=== PATIENT | female | born 1950 | race Caucasian/White ===

== ENCOUNTER 2022-08-12 09:44 | Outpatient (OUT) | payer MEDICARE, SELFPAY ==
--- NOTE | 2022-08-12 10:08 | US_ITS ---
The [address] [address] Patient Name: YANIRA BUNN MRN: [facility]:[id number] date: 1950 Sex: F Assigned Patient Location: US Current Patient Location: US Accession/Order Number: [id number] Exam Date: 08/12/2022 10:08 Report Date: 08/13/2022 06:44 At the request of: RODRIGUEZ DOUGLASS Procedure: US thyroid EXAMINATION: US thyroid HISTORY: Papillary microcarcinoma of thyroid C73 ; follow-up of thyroid bed tissue post thyroidectomy COMPARISON: Ultrasound thyroid 03/23/2022 FINDINGS: RIGHT LOBE: Prior thyroidectomy with questionable 7 x 5 x 4 mm area within thyroid bed. Just cephalad to this area is an 18 x 6 x 3 mm similar-appearing isoechoic/hypoechoic tissue. Nearby benign-appearing lymph node, 12 x 7 x 5 mm. Lobe size: Prior thyroidectomy. LEFT LOBE: Prior thyroidectomy with questionable 5 x 4 x 3 mm isoechoic/hypoechoic tissue within thyroid bed. Nearby benign-appearing lymph node, 10 x 6 x 5 mm. Lobe size: Prior thyroidectomy. ISTHMUS: Prior thyroidectomy. IMPRESSION: 1. Prior bilateral thyroidectomy. 2. Small foci of soft tissue within the right and left thyroid beds which may represent residual thyroid tissue or postsurgical changes. In retrospect all 3 areas are suspected to have been present on prior study and appear stable. Consider additional follow-up in 6 months to document continued stability. Electronically authenticated by: KRISTEL AGUAYO Date: 08/13/2022 06:44
[2022-08-18 01:07] LABS: Thyroglobulin (TG-RIA) <2.0 ng/mL (.)
== END 2022-08-12 09:45 ==
PROVIDERS: PCP Internal Medicine; Visit Provider Otolaryngology
DX: C73 Malignant neoplasm of thyroid gland (principal)
CPT/HCPCS: 36415; 76536; 84432

== ENCOUNTER 2022-09-03 10:32 | Outpatient (OUT) | payer MEDICARE, SELFPAY ==
[2022-09-10 21:07] LABS: Thyroglobulin (TG-RIA) <2.0 ng/mL (.)
== END 2022-09-03 10:33 | disposition home or self-care (01) ==
LOC: LAB 10:34
PROVIDERS: PCP Internal Medicine; Visit Provider Otolaryngology
DX: C73 Malignant neoplasm of thyroid gland (principal)
CPT/HCPCS: 36415; 84432; 86800

== ENCOUNTER 2022-09-22 10:15 | Outpatient (OUT) | payer MEDICARE, SELFPAY ==
[2022-09-22 12:22] LABS: Thyroid Stimulating Hormone 2.421 uIU/mL (0.358-3.740)
== END 2022-09-22 10:16 | disposition home or self-care (01) ==
LOC: LAB 10:16
PROVIDERS: PCP Internal Medicine; Visit Provider Otolaryngology
DX: C73 Malignant neoplasm of thyroid gland (principal)
CPT/HCPCS: 36415; 84443

== ENCOUNTER 2023-02-23 08:47 | Outpatient (OUT) | payer MEDICARE, SELFPAY ==
--- NOTE | 2023-02-23 08:50 | US_ITS ---
[address] [address] Patient Name: YANIRA BUNN MRN: [id number] date: 1950 Sex: F Assigned Patient Location: US Current Patient Location: US Accession/Order Number: [id number] Exam Date: 02/23/2023 08:51 Report Date: 02/23/2023 09:37 At the request of: RODRIGUEZ DOUGLASS Procedure: US thyroid EXAM: US thyroid HISTORY: papillary microcarcinoma of thyroid C73 COMPARISON: March and August 2022 thyroid and neck ultrasound TECHNIQUE: Transverse and longitudinal images of the neck FINDINGS: Previous thyroidectomy. 11 x 4 x 8 mm lobulated hypoechoic tissue in the right thyroid bed 15 x 7 x 14 mm lobulated hypoechoic tissue in the left thyroid bed This likely reflects residual thyroid tissue. Adjacent benign-appearing lymph nodes measuring approximately 10 x 5 and 15 x 6 mm. These have reniform shape and central fatty stewart US/US thyroid IMPRESSION: Stable sonographic appearance post thyroidectomy from March 2022 Probable residual tissue in the thyroid fossa. Adjacent benign-appearing lymph nodes Electronically authenticated by: LION EVANS Date: 02/23/2023 09:37
== END 2023-02-23 08:48 | disposition home or self-care (01) ==
LOC: US 08:47
PROVIDERS: PCP Internal Medicine; Visit Provider Otolaryngology
DX: C73 Malignant neoplasm of thyroid gland (principal)
CPT/HCPCS: 76536

== ENCOUNTER 2023-09-15 09:01 | Outpatient (OUT) | payer MEDICARE, SELFPAY ==
--- NOTE | 2023-09-15 09:04 | US_ITS ---
[address] [address] Patient Name: YANIRA BUNN MRN: [id number] date: 1950 Sex: F Assigned Patient Location: US Current Patient Location: US Accession/Order Number: [id number] Exam Date: 09/15/2023 09:45 Report Date: 09/15/2023 10:39 At the request of: RODRIGUEZ DOUGLASS Procedure: US thyroid EXAMINATION: US thyroid HISTORY: Papillary Microcarcinoma Of Thyroid C73 COMPARISON: 02/23/2023 TECHNIQUE: Sonographic images of the thyroid gland were obtained. FINDINGS: Remote total thyroidectomy Area of soft tissue in the right thyroid fossa measuring 5.3 x 4.7 x 11.3 mm. Area of soft tissue in the left thyroid fossa measuring 16.5 x 11.0 x 3.8 mm US/US thyroid IMPRESSION: Stable residual/recurrent thyroid tissue or postsurgical changes in the thyroid bed No new mass or lymphadenopathy Electronically authenticated by: LEILA HARMAN Date: 09/15/2023 10:39
[2023-09-15 11:42] LABS: Thyroid Stimulating Hormone 5.265 uIU/mL (0.358-3.740)
== END 2023-09-15 09:02 | disposition home or self-care (01) ==
LOC: US 09:01
PROVIDERS: PCP Internal Medicine; Visit Provider Otolaryngology
DX: C73 Malignant neoplasm of thyroid gland (principal)
CPT/HCPCS: 36415; 76536; 84432; 84443

== ENCOUNTER 2024-02-14 08:57 | Outpatient (OUT) | payer MEDICARE, SELFPAY ==
--- NOTE | 2024-02-14 09:02 | FL_ITS ---
The [address] [address] Patient Name: YANIRA BUNN MRN: [id number] date: 1950 Sex: F Assigned Patient Location: NM Current Patient Location: NM Accession/Order Number: [id number] Exam Date: 02/14/2024 09:25 Report Date: 02/14/2024 10:43 At the request of: RODRIGUEZ DOUGLASS Procedure: FL modified barium swallow EXAMINATION: FL modified barium swallow HISTORY: Pharyngoesophageal Dysphagia COMPARISON: No relevant comparison available. TECHNIQUE: A swallowing evaluation was performed with fluoroscopy in the usual manner. Standard level fluoroscopic mode of operation utilized. FINDINGS: ORAL PHASE: Normal deglutition. PHARYNGEAL PHASE: Normal swallowing. ASPIRATION: None. STRUCTURE: Normal. No visible obstruction, stricture, or dilatation. OTHER: Negative. FL/FL modified barium swallow IMPRESSION: 1. No aspiration or penetration during swallowing of thin liquid and solids. 2. Please see speech pathologist's report for further discussion and recommendations. Electronically authenticated by: KRISTEL AGUAYO Date: 02/14/2024 10:43
== END 2024-02-14 08:58 | disposition home or self-care (01) ==
LOC: FL 08:57
PROVIDERS: PCP Internal Medicine; Visit Provider Otolaryngology
DX: R13.14 Dysphagia, pharyngoesophageal phase (principal)
CPT/HCPCS: 74230

== ENCOUNTER 2024-03-14 09:45 | Outpatient (OUT) | payer MEDICARE, SELFPAY ==
--- NOTE | 2024-03-14 09:47 | US_ITS ---
The [place] [id number] Patient Name: YANIRA BUNN MRN: [id number] date: 1950 Sex: F Assigned Patient Location: US Current Patient Location: US Accession/Order Number: [id number] Exam Date: 03/14/2024 09:50 Report Date: 03/14/2024 11:40 At the request of: RODRIGUEZ DOUGLASS Procedure: US thyroid EXAMINATION: US thyroid HISTORY: thyroid nodule E04.1 COMPARISON: 09/15/2023 TECHNIQUE: Sonographic images of the thyroid gland were obtained. FINDINGS: Again demonstrated is soft tissue in the right thyroid bed measuring 0.6 x 0.5 x 1.4 cm in the left thyroid bed measuring 0.8 x 1.0 x 1.6 cm. These areas are stable. No new focal mass or lymphadenopathy. US/US thyroid IMPRESSION: Stable residual/recurrent thyroid tissue Electronically authenticated by: LEILA HARMAN Date: 03/14/2024 11:40
== END 2024-03-14 09:46 | disposition home or self-care (01) ==
LOC: US 09:45
PROVIDERS: Visit Provider Otolaryngology
DX: E04.1 Nontoxic single thyroid nodule (principal)
CPT/HCPCS: 76536

== ENCOUNTER 2024-07-05 13:09 | Outpatient (OUT) | payer MEDICARE, SELFPAY ==
--- NOTE | 2024-07-05 13:25 | MR_ITS ---
The [place] [id number] Patient Name: YANIRA BUNN MRN: [id number] date: 1950 Sex: F Assigned Patient Location: LAB Current Patient Location: LAB Accession/Order Number: [id number] Exam Date: 07/05/2024 17:12 Report Date: 07/05/2024 17:15 At the request of: JOSEPH ROE NP Procedure: MR head/brain wo/w con MRI of the brain with and without IV contrast. Reason for exam: Cognitive impairment. History meningioma. COMPARISON: None. TECHNIQUE: Multisequence, multiplanar imaging of the brain was performed before and after the use of IV contrast. FINDINGS: No evidence of restriction diffusion is an diffusion-weighted imaging. No evidence of blood products are seen on T2 Star imaging. Cortical atrophy with mild chronic microvascular ischemic changes are noted. Posterior fossa appears unremarkable. Intraorbital contents appear unremarkable. No significant paranasal sinus disease. Postcontrast imaging demonstrates no abnormal enhancement. MR/MR head/brain wo/w con IMPRESSION: No acute process. Cortical atrophy with mild chronic microvascular ischemic changes. No abnormal enhancement. Impression dictated by: Rikki Garcia Jr., D.O. 07/05/2024 5:15 PM Dictation Location: import2[facility]ENTER[facility]red[facility] Electronically authenticated by: [id number] Y Date: 07/05/2024 17:15
[2024-07-05 13:50] LABS: Estimated GFR (African America >60 (>=60 mL/min/1.73m^2); Estimated GFR (Non-African Ame 57 (>=60 mL/min/1.73m^2)
== END 2024-07-05 13:10 | disposition home or self-care (01) ==
LOC: LAB 13:09
PROVIDERS: Pathology Anatomic Pathology & Clinical Pathology; Visit Provider Nurse Practitioner Family
DX: R41.89 Other symptoms and signs involving cognitive functions and awareness (principal); R48.0 Dyslexia and alexia; R47.01 Aphasia; D32.9 Benign neoplasm of meninges, unspecified
CPT/HCPCS: 36415; 70553; 82565; A9575

== ENCOUNTER 2024-09-19 09:48 | Outpatient (OUT) | payer MEDICARE, SELFPAY ==
--- OUTSIDE RECORDS SUMMARY | 2024-04-09 07:45 | XMS_ITS | Continuity of Care Document ---
Author Organization [facility] Address [address] [place] [address] Phone Care Team Providers Care Correction Officer Name Role Phone Jhon Vergara MD Unavailable Unavailable Procedures Procedure Date DIAGNOSTIC COLONOSCOPY UPPER GI ENDOSCOPY, BIOPSY Colon ca scrn not hi rsk ind OFFICE/OUTPATIENT VISIT, EST OFFICE/OUTPATIENT VISIT, EST OFFICE/OUTPATIENT VISIT, EST OFFICE/OUTPATIENT VISIT, EST OFFICE/OUTPATIENT VISIT, EST OFFICE/OUTPATIENT VISIT, EST OFFICE/OUTPATIENT VISIT, EST OFFICE/OUTPATIENT VISIT, EST OFFICE/OUTPATIENT VISIT, EST OFFICE/OUTPATIENT VISIT, EST POSTOP FOLLOW-UP VISIT POSTOP FOLLOW-UP VISIT Sleeve Gastrectomy LAP PARAESOPHAG MANDY REPAIR ASSIST LAP SLEEVE GASTRECTOMY LAP PARAESOPHAG MANDY REPAIR OFFICE/OUTPATIENT VISIT, EST OFFICE/OUTPATIENT VISIT, NEW Advance Directives Directive Yes / No Effective Date File Name No Information Encounters Encounter Description Practice Location Reason(s) For Visit Diagnoses Date Provider Providers Copied on Encounter [facility], [address] [place] [address] [address], [place], [place], [id number], [place] tel:[phone] [facility] OP No Information Ursula Ferreira. [address] [facility] [address], [place], [place], [id number], [place]. tel:[phone] Referring Provider: Jhon Jaimes, [address], [place], [address] . tel:[phone] OFFICE/OUTPAT IENT VISIT, [facility], [address] [place] [address] [address], [place], [place], [id number], [place] tel:[phone] [facility] No Information Ursula Ferreira. [address] [place] [address] [address], [place], [place], [id number], [place]. tel:[phone] Referring Provider: Jhon Jaimes, [address] [place] [address] [address], [place], [address] . tel:[phone] OFFICE/OUTPAT IENT VISIT, [facility], [address] [place] [address] B, [place], [place], [id number], [place] tel:[phone] [facility] No Information Cesar Gambino. [address] [place] [address] [address], [place], [place], [address], [place]. tel:[phone] Referring Provider: Maki Guerrero, [address] [place] [address] [address] [facility], [place], [address] . tel:[phone] OFFICE/OUTPAT IENT VISIT, [facility], [address] [place] [address] [address], [place], [place], [id number], [place] tel:[phone] [facility] No Information Cesar Gambino. [address] [place] [address] [address], [place], [place], [id number], [place]. tel:[phone] Referring Provider: Maki Guerrero, [address] [place] [address] [address], [place], [address] . tel:[phone] OFFICE/OUTPAT IENT VISIT, [facility], [address] [place] [address] [address], [place], [place], [id number], [place] tel:[phone] [facility] No Information Cesar Gambino. [address] [place] [address] [address], [place], [place], [address], [place]. tel:[phone] Referring Provider: Maki Guerrero, [address] [place] [address] [address], [place], [address] . tel:[phone] OFFICE/OUTPAT IENT VISIT, [facility], [address] [place] [address] [address], [facility] [place], [id number], [place] tel:[phone] [facility] No Information Cesar Gambino. [address] [facility] [address], [facility] [place], [id number], [place]. tel:[phone] Referring Provider: Maki Guerrero, [address] [place] [address] [address], [place], [address] . tel:[phone] OFFICE/OUTPAT IENT VISIT, [facility], [address] [place] [address] [address], [place], [place], [id number], [place] tel:[phone] [facility] No Information Cesar Gambino. [address] [place] [address] [address], [place], [place], [address], [place]. tel:[phone] Referring Provider: Maki Guerrero, [address] [place] [address] [address], [place], [address] . tel:[phone] OFFICE/OUTPAT IENT VISIT, [facility], [address] [place] [address] [address], [place], [address], [place] tel:[phone] [facility] No Information No Information OFFICE/OUTPAT IENT VISIT, [facility], [address] [place] [address] [address], [place], [address], [place] tel:[phone] [facility] No Information No Information OFFICE/OUTPAT IENT VISIT, [facility], [address] [place] [address] [address], [place], [address], [place] tel:[phone] [facility] No Information No Information OFFICE/OUTPAT IENT VISIT, [facility], [address], [place], [place], [address], [place] tel:[phone] [facility] No Information No Information [facility], [address], [place], [id number], [place] tel:[phone] [facility] No Information No Information [facility], [address] [place] [address] Road [address], [place], [place], [address], [place] tel:[phone] [facility] No Information No Information Referring Provider: Jhon Jaimes, [facility] [address] [facility] [address], [place], [address] . tel:[phone] [facility], [address] [place] [address] [address], [place], [place], [address], [place] tel:[phone] [facility] IP No Information No Information [facility], [address] [place] [address] Road [address], [place], [place], [address], [place] tel:[phone] [facility] IP No Information Ursula Ferreira. [facility] [address] [facility] [address], [place], [place], [address], [place]. tel:[phone] Referring Provider: Jhon Jaimes, [address], [place], [address] . tel:[phone] OFFICE/OUTPAT IENT VISIT, [facility], [address], [place], [address], [place] tel:[phone] [facility] No Information Ursula Ferreira. [address] [facility] [address], [place], [place], [address], [place]. tel:[phone] Referring Provider: Jhon Jaimes, [address], [place], [address] . tel:[phone] OFFICE/OUTPAT IENT VISIT, [address], [address], [place], [place], [address], [place] tel:[phone] [facility] No Information Ursula Ferreira. [address] [place] [address] [address], [place], [place], [address], [place]. tel:[phone] Referring Provider: Jhon Jaimes, [address] [place] [address] [address], [place], [address] . tel:[phone] Family History Family Member Type Diagnosis Age At Onset No Information Payers Payer name Insurance type Covered libertarian ID Authoriza efrain(s) [employer] [id number] Social History Type Description Quantity Date Captured Comments Sex Female Smoking Status No Information Chief Complaint And Reason For Visit No Information Reason For Referral Reason For Referral No Information Plan Of Treatment Date Type Action Status Appointment Miracle Wilson BOOKED History Of Present Illness Encounter Date Complaint History Of Prese nt Illness No Information Functional Status Date Functional Assessmen t No Information Instructions Date Instruction Additional Infor mation No Information Assessments Type Assessment Date No Information Patient Care Teams Name Effective Dates (start - stop) Status Members No Information
--- NOTE | 2024-09-19 09:50 | US_ITS ---
The [address] [address] Patient Name: YANIRA BUNN MRN: [id number] date: 1950 Sex: F Assigned Patient Location: US Current Patient Location: US Accession/Order Number: [id number] Exam Date: 09/19/2024 10:40 Report Date: 09/19/2024 10:47 At the request of: RODRIGUEZ DOUGLASS MD Procedure: US thyroid THYROID ULTRASOUND COMPARISON: 03/14/2024 CLINICAL DATA: Follow-up after thyroidectomy. Real-time ultrasound evaluation of the lower neck was performed. Hypoechoic tissue is seen within the thyroid fossa on both sides. On the right, this measures 16 x 5 x 5 mm. On the left it measures approximately 15 x 4 x 7 mm. This was also present on the prior. No associated nodularity is seen. US/US thyroid IMPRESSION: SIMILAR HYPOECHOIC DENSITY WITHIN THE THYROID BED ON BOTH SIDES, POSSIBLY RESIDUAL THYROID TISSUE. NO NEW ABNORMALITIES. Impression dictated by: Jacqueline Mccollum M.D. 09/19/2024 10:47 AM Dictation Location: [place] [address] Electronically authenticated by: [id number] Y Date: 09/19/2024 10:47
--- OUTSIDE RECORDS SUMMARY | 2024-09-19 09:50 | XMS_ITS | Encounter Summary ---
Author Organization [facility] Address [address] [place] [address] Care Team Providers Care Luster Applicator Name Role Phone Ricci Julian MD Unavailable [phone] Ricci Julian MD Primary Care Provider [phone] [place] Vallejo NP Unavailable Unavailable Encounter Details Date Type Department Care Team ([facility] Contact Info) Description 11/02/2023 Abstract [facility] [address] [facility] [address] [place] [address] Ricci Julian MD [address] [facility] [address] [place], [place] [id number] Social History Tobacco Use Types Packs/Day Years Used Date Smoking Tobacco: Former Cigarettes 2 36.9 0 05/29/1962 - 04/07/1999 Smokeless Tobacco: Never Comments:Stopped smoking > 1 0 years ago. Alcohol Use Standard Drinks/Week Comments Yes 0 (1 standard drink = 0.6 oz pure alcohol) caffeine intake: 4 or more cups per day. B1300 Health Literacy Answer Date Recor ded How often do you need to hav e someone help you when you read instructions, pamphlets, or other written material from your doctor or pharmacy? Never 10/28/2023 Humiliation, Afraid, Rape, and Kick questionnair e Answer Date Recorded Within the last year, have y ou been afraid of your partner or ex-partner? No 10/18/2022 Within the last year, have y ou been humiliated or emotionally abused in other ways by your partner or ex-partner? No Within the last year, have y ou been kicked, hit, slapped, or otherwise physically hurt by your partner or ex-partner? No 10/18/2022 Within the last year, have y ou been raped or forced to have any kind of sexual activity by your partner or ex-partner? No 10/18/2022 Social Connection and Isolat ion Panel [NHANES] Answer Date Recorded In a typical week, how many times do you talk on the phone with family, friends, or neighbors? More than three times a week 10/28/2023 How often do you get togethe r with friends or relatives? Twice a week 10/28/2023 How often do you attend chur ch or judaism services? Patient declined 10/28/2023 Do you belong to any clubs o r organizations such as orthodoxy groups, unions, fraEngine Yard or athletic groups, or school groups? Patient declined 10/28/2023 How often do you attend meet ings of the clubs or organizations you belong to? Patient declined 10/28/2023 Are you , , di vorced, , never , or living with a partner? 10/28/2023 AUDIT-C Answer Date Recorded Q1: How often do you have a drink containing alc ohol? Monthly or less 10/28/2023 Q2: How many drinks containi ng alcohol do you have on a typical day when you are drinking? 1 or 2 10/28/2023 Q3: How often do you have si x or more drinks on one occasion? Never 10/28/2023 Overall Financial Resource Strain (CARDIA) Answe r Date Recorded How hard is it for you to pa y for the very basics like food, housing, medical care, and heating? Patient declined 10/28/2023 PHQ-2 Answer Date Recorded Patient Health Questionnaire-2 Score 0 10/28/2023 [facility] - Occupational Stress Questionnaire Answer Date Recorded Do you feel stress - tense, restless, nervous, or anxious, or unable to sleep at night because your mind is troubled all the time - these days? Only a little 10/28/2023 Exercise Vital Sign Answer Date Recorde d On average, how many days pe r week do you engage in moderate to strenuous exercise (like a brisk walk)? 5 days 10/28/2023 On average, how many minutes do you engage in exercise at this level? 10 min 10/28/2023 Hunger Vital Sign Answer Date Recorded Within the past 12 months, y ou worried that your food would run out before you got the money to buy more. Patient declined Within the past 12 months, t he food you bought just didn't last and you didn't have money to get more. Patient declined PRAPARE - Transportation Answer Date Re corded In the past 12 months, has l ack of transportation kept you from medical appointments or from getting medications? Patient declined 10/28/2023 In the past 12 months, has l ack of transportation kept you from meetings, work, or from getting things needed for daily living? Patient declined 10/28/2023 Housing Stability Vital Sign Answer Aris e Recorded In the last 12 months, was t here a time when you were not able to pay the mortgage or rent on time? No 10/18/2022 Number of Places Lived in the Last Year Not on f ile 10/18/2022 In the last 12 months, was t here a time when you did not have a steady place to sleep or slept in a [place] (including now)? No 10/18/2022 Housing Stability Vital Sign Answer Aris e Recorded In the last 12 months, was t here a time when you were not able to pay the mortgage or rent on time? No 10/28/2023 Number of Times Moved in the Last Year Not on fi le 10/28/2023 At any time in the past 12 m [facility], were you homeless or living in a [place] facility (including now)? No 10/28/2023 Comments Unknown Sex and Gender Information Value Date Recorded Sex Assigned at Not on file Legal Sex Female 6:50 PM EDT Gender Identity Not on file Sexual Orientation Not on file documented as of this encounter Plan of Treatment Upcoming Encounters Date Type Department Care Team (Late st Contact Info) Description 09/26/2024 10:20 AM EDT Office Visit [facility] [address] [facility] [address] [place] [address] Megan Pretty MD [address] [facility] [address] [place] [address] 10/15/2024 10:00 AM EDT Social Work [facility] [address] [facility] [address] Kerry Bradshaw [facility] [address] [place] [facility] [place] [address] 12/03/2024 9:15 AM EDT Office Visit [facility] [address] [place] [address] Ricci Julian MD [address] [place] [address] 01/01/2025 2:40 PM EDT Office Visit [facility] [address] [place] [address] Cheri Rojas, [employer] [address] [place] [address] 07/02/2025 2:35 PM EDT Office Visit [facility] [address] [place] [address] Cheri Rojas, [employer] [address] [place] [address] documented as of this encounter Goals Goal Patient Goal Type Associated Problems Recent Progress Patient-Stated? Author Help patient manage antidepressant medication Care Plan Patient on antidepressant monitoring plan Jessi Ochoa NP documented as of this encounter Visit Diagnoses Not on filedocumented in this encounter Additional Health Concerns Active Problems Noted Date Diagnosed Date Patient on antidepressant monitoring plan 2023 Assessment Noted Time PHQ-9 Depression Total Score: 0 10/28/19 24 9:19 AM EDT documented as of this encounter Care Teams Luster Applicator Relationship Specialty Start Date End Date Ricci Julian MD [address] [place] [address] PCP - [employer] 03/07/17 Ricci Julian MD [address] [facility] [address] [place] [address] PCP - General Internal Medicine 08/30/22 Florida Vallejo NP [address] [facility] [address] [place] [address] Nurse Practitioner Neurology 06/28/24 documented as of this encounter
--- OUTSIDE RECORDS SUMMARY | 2024-09-19 09:50 | XMS_ITS | Encounter Summary ---
Author Organization [facility] Address [address] [place] [address] Care Team Providers Care Guitar Player Name Role Phone Ricci Julian MD Unavailable [phone] Ricci Julian MD Primary Care Provider [phone] [place] Vallejo NP Unavailable Unavailable Encounter Details Date Type Department Care Team (Late st Contact Info) Description 02/14/2024 Clinisync Result Encounter [facility] External Department Unsolicited Provider, Generic External Data Social History Tobacco Use Types Packs/Day Years [...] 10/28/2023 How often do you attend chur or voodoo services? Patient declined 10/28/2023 Do you belong to any clubs o r organizations such as protestant groups, unions, fraternal or athletic groups, or school groups? Patient [...] Recorded Patient Health Questionnaire-2 Score 0 10/28/2023 [facility] - Occupational Stress Questionnaire Answer Date Recorded [...] place to sleep or slept in a penitentiary (including now)? No 10/18/2022 Housing Stability Vital Sign Answer Aris e Recorded In the last 12 months, was t here a time when you were not able to pay the mortgage or rent on time? No 10/28/2023 Number of Times Moved in the Last Year Not on fi le 10/28/2023 At any time in the past 12 m [facility], were you homeless or living in a penitentiary (including now)? No 10/28/2023 Comments Unknown Sex and Gender Information Value Date Recorded Sex Assigned at Not on file Legal Sex Female 6:50 PM EDT Gender Identity Not on file Sexual Orientation Not on file documented as of this encounter Plan of Treatment Upcoming Encounters Date Type Department Care Team (Late st Contact Info) Description 09/26/2024 10:20 AM EDT Office Visit [facility] 112 [facility] [address] [place] [address] Megan Pretty MD 112 [facility] [address] [place] [address] 10/15/2024 10:00 AM EDT Social Work [facility] [address] [place] [address] Kerry Bradshaw, BAILEE-S [address] [place] [address] 12/03/2024 9:15 AM EDT Office Visit [facility] [address] [place] [address] Ricci Julian MD [address] [place] [address] 01/01/2025 2:40 PM EDT Office Visit [facility] D[facility] [address] [place] [address] Cheri Rojas, WORKFORCE DEVELOPMENT VICE PRESIDENT-SET UP MECHANIC COATING MACHINES [address] [place] [address] 07/02/2025 2:35 PM EDT Office Visit [facility] [address] [place] [address] Cheri Rojas, WORKFORCE DEVELOPMENT VICE PRESIDENT-SET UP MECHANIC COATING MACHINES [address] [place] [address] documented as of this encounter Goals Goal Patient Goal Type Associated Problems Recent Progress Patient-Stated? Author Help patient manage antidepressant medication Care Plan Patient on antidepressant monitoring plan Jessi Ochoa, MACHINE MAINTENANCE MECHANIC documented as of this encounter Procedures Procedure Name Priority Date/Time Associated Diagnosis Comments FL MODIFIED BARIUM SWALLOW 02/14/2024 10:43 AM EST documented in this encounter Results * FL MODIFIED BARIUM SWALLOW (02/14/2024 10:43 AM EST) Anatomical Region Laterality Modality Radiographic Adalgisa ging 02/14/2024 10:4 3 AM EST Narrative 02/14/2024 10:46 AM EST The [address] [address] Fluoroscopy Report Signed Patient: YANIRA BUNN MR#: [id number] : 1950 Acct:[id number] Age/Sex: 74 / F ADM Date: 02/14/24 Loc: [place] Attending Dr: Megan Pretty M.D. Ordering Physician: Megan Pretty M.D. Date of Service: 02/14/24 Procedure(s): FL modified barium swallow Accession Number(s): [id number] cc: RICCI JULIAN ; Megan Pretty M.D. The [place] [address] Patient Name: YANIRA BUNN MRN: [facility]:[id number] date: 1950 Sex: F Assigned Patient Location: CT Current Patient Location: CT Accession/Order Number: [id number] Exam Date: 02/14/2024 09:25 Report Date: 02/14/2024 10:43 At the request of: MEGAN PRETTY Procedure: FL modified barium swallow EXAMINATION: FL modified barium swallow HISTORY: Pharyngoesophageal Dysphagia COMPARISON: No relevant comparison available. TECHNIQUE: A swallowing evaluation was performed with fluoroscopy in the usual manner. Standard level fluoroscopic mode of operation utilized. FINDINGS: ORAL PHASE: Normal deglutition. PHARYNGEAL PHASE: Normal swallowing. ASPIRATION: None. STRUCTURE: Normal. No visible obstruction, stricture, or dilatation. OTHER: Negative. FL/FL modified barium swallow IMPRESSION: 1. No aspiration or penetration during swallowing of thin liquid and solids. 2. Please see speech pathologist's report for further discussion and recommendations. Electronically authenticated by: HERMILO KLEIN Date: 02/14/2024 10:43 Dictated By: Hermilo Klein M.D. Signed By: 02/14/24 1046 DD/ 1043 TD/TT: Pump Servicer Supervisor: Procedure Note Radiology, Radiologist, MD - 02/14/2024 [place] [address] Fluoroscopy Report Signed Patient: YANIRA BUNN EMR#: [id number] : 1950cct:[id number] Age/Sex: 74 / FADM Date: 02/14/24 Loc: [place] Attending Dr: Megan Pretty M.D. Ordering Physician: Megan Pretty M.D. Date of Service: 02/14/24 Procedure(s): FL modified barium swallow Accession Number(s): [id number] cc: RICCI JULIAN ; Megan Pretty M.D. [address] [address] Patient Name: YANIRA BUNN MRN: [id number] date: 1950 Sex: F Assigned Patient Location: CT Current Patient Location: CT Accession/Order Number: [id number] Exam Date: 02/14/2024 09:25 Report Date: 02/14/2024 10:43 At the request of: MEGAN PRETTY Procedure: FL modified barium swallow EXAMINATION: FL modified barium swallow HISTORY: Pharyngoesophageal Dysphagia COMPARISON: No relevant comparison available. TECHNIQUE: A swallowing evaluation was performed with fluoroscopy in theusual manner. Standard level fluoroscopic mode of operation utilized. FINDINGS: ORAL PHASE: Normal deglutition. PHARYNGEAL PHASE: Normal swallowing. ASPIRATION: None. STRUCTURE: Normal. No visible obstruction, stricture, or dilatation. OTHER: Negative. FL/FL modified barium swallow IMPRESSION: 1. No aspiration or penetration during swallowing of thin liquid andsolids. 2. Please see speech pathologist's report for further discussion and recommendations. Electronically authenticated by: HERMILO KLEIN Date: 02/14/2024 10:43 Dictated By: Hermilo Klein M.D. Signed By:02/14/24 1046 DD/ 1043 TD/TT: Pump Servicer Supervisor: Generic External Data Provider IMG XR PROCEDURES Final Result documented in this encounter Visit Diagnoses Not on filedocumented in this encounter Additional Health Concerns Active Problems Noted Date Diagnosed Date Patient on antidepressant monitoring plan 2023 Assessment Noted Time PHQ-9 Depression Total Score: 0 10/28/19 24 9:19 AM EDT documented as of this encounter Care Teams Guitar Player Relationship Specialty Start Date End Date Ricci Julian MD [address] [place] [address] PCP - [employer] 03/07/17 Ricci Julian MD [address] [facility] [address] [place] [address] PCP - General Internal Medicine 08/30/22 Florida Vallejo NP [address] [facility] [address] [place] [address] Nurse Practitioner Neurology 06/28/24 documented as of this encounter
--- OUTSIDE RECORDS SUMMARY | 2024-09-19 09:50 | XMS_ITS | Encounter Summary ---
Author Organization [facility] Address [address] [facility] [place] [address] Care Team Providers Care Clinical Rn Manager Name Role Phone Ricci Julian MD Unavailable [phone] Ricci Julian MD Primary Care Provider [phone] Florida Vallejo NP Unavailable Unavailable Encounter Details Date Type Department Care Team ([facility] Contact Info) Description 08/03/2022 Abstract [facility] [address] [place] [address] Megan Pretty MD 112 [facility] [address] [place], [place] [address] Social History Tobacco Use Types Packs/Day Years Used Date Smoking Tobacco: Former Cigarettes Q uit: 1999 Tobacco Cessation:Counseling Given: Not Answered Comments:Stopped smoking > 10 years ago. Alcohol Use Standard Drinks/Week Comments Yes 0 (1 standard drink = 0.6 oz pure alcohol) 2-4 times a month. caffeine intake: 4 or more cups per day. Comments Unknown Sex and Gender Information Value Date Recorded Sex Assigned at Not on file Legal Sex Female 6:50 PM EDT Gender Identity Not on file Sexual Orientation Not on file documented as of this encounter Plan of Treatment Upcoming Encounters Date Type Department Care Team ([facility] Contact Info) Description 09/26/2024 10:20 AM EDT Office Visit [facility] JAMARI CARVAJAL [address] [place] [address] Megan Pretty MD 112 [facility] [address] [place], [place] [address] 10/15/2024 10:00 AM EDT Social Work [facility] [address] [facility] [place] [address] Kerry Bradshaw LISW-S [address] [place] [address] 12/03/2024 9:15 AM EDT Office Visit [facility] [address] [place] [address] Ricci Julian MD [address] [place] [address] 01/01/2025 2:40 PM EDT Office Visit [facility] [address] [place] [address] Cheri Rojas, LINE FIXER-ROUSTABOUT CREW [address] [place] [address] 07/02/2025 2:35 PM EDT Office Visit [facility] [address] [place] [address] Cheri Rojas, LINE FIXER-ROUSTABOUT CREW [address] [place] [address] documented as of this encounter Visit Diagnoses Not on filedocumented in this encounter Care Teams Clinical Rn Manager Relationship Specialty Start Date End Date Ricci Julian MD [address] [place] [address] PCP - [employer] 03/07/17 Ricci Julian MD [address] [place] [address] PCP - General Internal Medicine 08/30/22 Florida Vallejo NP [address] [place] [address] Nurse Practitioner Neurology 06/28/24 documented as of this encounter
--- OUTSIDE RECORDS SUMMARY | 2024-09-19 09:50 | XMS_ITS | Encounter Summary ---
Author Organization [facility] Address [address] [place] [address] Care Team Providers Care Chief Analytics Officer Name Role Phone Ricci Julian MD Unavailable [phone] Ricci Julian MD Primary Care Provider [phone] Florida Vallejo NP Unavailable Unavailable Encounter Details Date Type Department Care Team ([facility] Contact Info) Description 12/23/2023 Orders Only [facility] E[facility] 112 [facility] [address] [place] [address] Jessi Becerra 112 [facility] [address] [place], [place] [address] Thyroid nodule ; Postoperative hypothyroidism Social History Tobacco Use Types Packs/Day Years [...] often do you attend chur ch or jehovah's witness services? Patient declined 10/28/2023 Do you belong to any clubs o r organizations such as orthodox groups, unions, fraReelation or athletic groups, or school groups? Patient [...] Recorded Patient Health Questionnaire-2 Score 0 10/28/2023 [facility] Occupat ional [facility] - Occupational Stress [...] place to sleep or slept in a long term (including now)? No 10/18/2022 Housing Stability Vital Sign Answer Aris e Recorded In the last 12 months, was t here a time when you were not able to pay the mortgage or rent on time? No 10/28/2023 Number of Times Moved in the Last Year Not on fi le 10/28/2023 At any time in the past 12 m [facility], were you homeless or living in a long term (including now)? No 10/28/2023 Comments Unknown Sex [...] EDT Office Visit [facility] 112 [facility] [address] [place] [address] Megan Pretty MD 112 [facility] [address] [place] [address] 10/15/2024 10:00 AM EDT Social Work [facility] [address] [place] [facility] [place] [address] Kerry Bradshaw LISW-S [address] [facility] [place] [address] 12/03/2024 9:15 AM EDT Office Visit [facility] [address] [place] [address] Ricci Julian MD [address] [place] [address] 01/01/2025 2:40 PM EDT Office Visit [facility] [address] [place] [address] Cheri Rojas, FELLING MACHINE OPERATOR-AUTOMOTIVE FUEL SYSTEMS CONVERTER [address] [place] [address] 07/02/2025 2:35 PM EDT Office Visit [facility] [address] [place] [address] Cheri Rojas, FELLING MACHINE OPERATOR-AUTOMOTIVE FUEL SYSTEMS CONVERTER [address] [place] [address] documented as of this encounter Goals Goal Patient Goal Type Associated Problems Recent Progress Patient-Stated? Author Help patient manage antidepressant medication Care Plan Patient on antidepressant monitoring plan Jessi Ochoa NP documented as of this encounter Visit Diagnoses Diagnosis Thyroid nodule Nontoxic uninodular goiter Postoperative hypothyroidism Postsurgical hypothyroidism documented in this encounter Additional Health Concerns Active Problems Noted Date Diagnosed Date Patient on antidepressant monitoring plan 2023 Assessment Noted Time PHQ-9 Depression Total Score: 0 10/28/19 24 9:19 AM EDT documented as of this encounter Care Teams Chief Analytics Officer Relationship Specialty Start Date End Date Ricci Julian MD [address] [place] [address] PCP - Humana 03/07/17 Ricci Julian MD [address] [facility] [address] [place] [address] PCP - General Internal Medicine 08/30/22 Florida Vallejo NP [address] [facility] [address] [place] [address] Nurse Practitioner Neurology 06/28/24 documented as of this encounter
--- OUTSIDE RECORDS SUMMARY | 2024-09-19 09:51 | XMS_ITS | Encounter Summary ---
Author Organization [facility] Address [address] [place] [address] Care Team Providers Care Director Of Residential Services Name Role Phone Ricci Julian MD Unavailable [phone] Ricci Julian MD Primary Care Provider [phone] Florida Vallejo NP Unavailable Unavailable Reason for Visit * Reason Comments Med Refill Encounter Details Date Type Department Care Team (Late Contact Info) Description 05/05/2024 Refill [facility] [address] [facility] [address] [place] [address] Ricci Julian MD [address] [place] [facility] [address] [place], [place] [id number] Anxiety and depression Social History Tobacco Use Types Packs/Day Years [...] How often do you attend chur or caodaism services? Patient declined 10/28/2023 Do you belong to any clubs o r organizations such as gnosticist groups, unions, fraternal or athletic groups, or [...] Recorded Patient Health Questionnaire-2 Score 0 10/28/2023 [facility] Occupat ional Health - Occupational Stress [...] place to sleep or slept in a jail (including now)? No 10/18/2022 Housing Stability Vital Sign Answer Aris e Recorded In the last 12 months, was t here a time when you were not able to pay the mortgage or rent on time? No 10/28/2023 Number of Times Moved in the Last Year Not on fi le 10/28/2023 At any time in the past 12 m [facility], were you homeless or living in a jail (including now)? No 10/28/2023 Comments Unknown Sex and Gender Information Value Date Recorded Sex Assigned at Not on file Legal Sex Female 6:50 PM EDT Gender Identity Not on file Sexual Orientation Not on file documented as of this encounter Miscellaneous Notes * Telephone Encounter - Ricci Julian MD - 05/07/2024 2:17 PM EST She hasn't been seen in over 2 years. If she intends for me to be her real estate loan officer, she needs tomake an appt within 60 days. Otherwise she will need to find a new MD to prescribe her meds. documented in this encounter Plan of Treatment Upcoming Encounters Date Type Department Care Team (Late st Contact Info) Description 09/26/2024 10:20 AM EDT Office Visit [facility] [address] [place] [address] Megan Pretty MD [address] [place] [address] 10/15/2024 10:00 AM EDT Social Work [facility] BH [address] [place] [address] Kerry Bradshaw LISW-S [address] [place] [facility] [place] [address] 12/03/2024 9:15 AM EDT Office Visit [facility] [address] [place] [address] Ricci Julian MD [address] [place] [address] 01/01/2025 2:40 PM EDT Office Visit [facility] [address] [place] [address] Cheri Rojas, NETWORK SECURITY ARCHITECT-GRAPHITE MILL OPERATOR [address] [place] [address] 07/02/2025 2:35 PM EDT Office Visit [facility] [address] [place] [address] Cheri Rojas, NETWORK SECURITY ARCHITECT-GRAPHITE MILL OPERATOR [address] [place] [address] documented as of this encounter Goals Goal Patient Goal Type Associated Problems Recent Progress Patient-Stated? Author Help patient manage antidepressant medication Care Plan Patient on antidepressant monitoring plan No Bushra, Jessi M, ROUGHER FOR CEMENT documented as of this encounter Visit Diagnoses Diagnosis Anxiety and depression documented in this encounter Additional Health Concerns Active Problems Noted Date Diagnosed Date Patient on antidepressant monitoring plan 2023 Assessment Noted Time PHQ-9 Depression Total Score: 0 10/28/19 24 9:19 AM EDT documented as of this encounter Care Teams Director Of Residential Services Relationship Specialty Start Date End Date Ricci Julian MD [address] [facility] [address] [place] [address] PCP - Humana 03/07/17 Ricci Julian MD [address] [facility] [address] [place] [address] PCP - General Internal Medicine 08/30/22 Florida Vallejo NP [address] [facility] [address] [place] [address] Nurse Practitioner Neurology 06/28/24 documented as of this encounter
--- OUTSIDE RECORDS SUMMARY | 2024-09-19 09:51 | XMS_ITS | Encounter Summary ---
Author Organization [facility] Address [address] [place] [address] Care Team Providers Care Supervisor Chassis Assembly Name Role Phone Ricci Julian MD Unavailable [phone] Ricci Julian MD Primary Care Provider [phone] [place] Vallejo NP Unavailable Unavailable Encounter Details Date Type Department Care Team (Late st Contact Info) Description 08/09/2024 Orders Only JESSICA EDWIN [address] [place] [address] Karen Burgess LPN 112 [facility] [address] [place] [address] Cognitive impairment; Alexia; Aphasia; Meningioma (HCC) Social History Tobacco Use Types Packs/Day Years [...] How often do you attend chur or jewish services? Patient declined 10/28/2023 Do you belong to any clubs o r organizations such as baptism groups, unions, fraternal or athletic groups, or [...] Recorded Patient Health Questionnaire-2 Score 0 10/28/2023 [facility] of Occupat ional Health - Occupational Stress [...] place to sleep or slept in a intermediate (including now)? No 10/18/2022 Housing Stability Vital Sign Answer Aris e Recorded In the last 12 months, was t here a time when you were not able to pay the mortgage or rent on time? No 10/28/2023 Number of Times Moved in the Last Year Not on fi le 10/28/2023 At any time in the past 12 m [facility], were you homeless or living in a intermediate (including now)? No 10/28/2023 Comments Unknown Sex [...] EDT Office Visit [facility] 112 [facility] [address] [place] [address] Megan Pretty MD 112 [facility] [address] [place] [address] 10/15/2024 10:00 AM EDT Social Work [facility] [address] [place] [address] Kerry Bradshaw, DRIVING TEACHER-S [address] [facility] [place] [address] 12/03/2024 9:15 AM EDT Office Visit [facility] [address] [place] [address] Ricci Julian MD [address] [place], [place] [address] 01/01/2025 2:40 PM EDT Office Visit [facility] [address] [place] [address] Cheri Rojas, PATHOLOGY LAB TECHNICIAN-WRAPPING MACHINE HELPER [address] [place] [address] 07/02/2025 2:35 PM EDT Office Visit [facility] [address] [place] [address] Cheri Rojas, PATHOLOGY LAB TECHNICIAN-WRAPPING MACHINE HELPER [address] [place] [address] documented as of this encounter Goals Goal Patient Goal Type Associated Problems Recent Progress Patient-Stated? 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 documented in this encounter Additional Health Concerns Active Problems Noted Date Diagnosed Date Patient on antidepressant monitoring plan 2023 Assessment Noted Time PHQ-9 Depression Total Score: 0 10/28/19 24 9:19 AM EDT documented as of this encounter Care Teams Supervisor Chassis Assembly Relationship Specialty Start Date End Date Ricci Julian MD [address] [place] [address] PCP - Hum[employer] 03/07/17 Ricci Julian MD [address] [facility] [address] [place] [address] PCP - General Internal Medicine 08/30/22 Florida Vallejo NP [address] [facility] [address] [place] [address] Nurse Practitioner Neurology 06/28/24 documented as of this encounter
--- OUTSIDE RECORDS SUMMARY | 2024-09-19 09:51 | XMS_ITS | Encounter Summary ---
Author Organization [facility] Address [address] [place] [address] Care Team Providers Care Kiln Stacker Name Role Phone Ricci Julian MD Unavailable [phone] Ricci Julian MD Primary Care Provider [phone] [place] Vallejo NP Unavailable Unavailable Reason for Visit * Reason Comments Med Refill Encounter Details Date Type Department Care Team ([facility] Contact Info) Description 09/17/2024 Refill [facility] [address] [facility] 130 [place] [address] Megan Pretty MD 112 [facility] 130 [place], [place] [id number] LPRD (laryngopharyngeal reflux disease) Social History Tobacco Use Types Packs/Day Years [...] How often do you attend chur or jain services? Patient declined 10/28/2023 Do you belong to any clubs o r organizations such as mosque groups, unions, fraternal or athletic groups, or [...] Answer Date Recorded Patient Health Questionnaire-2 Score 2 08/23/2024 [facility] [place] of Occupat ional Health - Occupational Stress [...] place to sleep or slept in a prison (including now)? No 10/18/2022 Housing Stability Vital Sign Answer Aris e Recorded In the last 12 months, was t here a time when you were not able to pay the mortgage or rent on time? No 10/28/2023 Number of Times Moved in the Last Year Not on fi le 10/28/2023 At any time in the past [address] [facility], were you homeless or living in a prison (including now)? No 10/28/2023 Comments Unknown Sex [...] EDT Office Visit [facility] 112 [facility] 130 [place] [address] Megan Pretty MD 112 [facility] 130 [place] [address] 10/15/2024 10:00 AM EDT Social Work [facility] [address] [place] [facility] [address] Kerry Bradshaw DeandreAMAURIW-S [address] [facility] [place] [address] 12/03/2024 9:15 AM EDT Office Visit [facility] [address] [facility] [address] [place] [address] iRcci Julian MD [address] [place] [address] 01/01/2025 2:40 PM EDT Office Visit [facility] [address] [place] [address] Cheri Rojas, INDUSTRIAL LABORER-ROLL FORMER [address] [place] [address] 07/02/2025 2:35 PM EDT Office Visit [facility] [address] [place] [address] Cheri Rojas, INDUSTRIAL LABORER-ROLL FORMER [address] [place] [address] documented as of this encounter Goals Goal Patient Goal Type Associated Problems Recent Progress Patient-Stated? Author Help patient manage antidepressant medication Care Plan Patient on antidepressant monitoring plan Jessi Ochoa FRUIT CHECKER documented as of this encounter Visit Diagnoses Diagnosis LPRD (laryngopharyngeal reflux disease) Acute laryngitis, without mention of obstruction documented in this encounter Additional Health Concerns Active Problems Noted Date Diagnosed Date Patient on antidepressant monitoring plan 2023 Assessment Noted Time PHQ-9 Depression Total Score: 0 10/28/19 24 9:19 AM EDT documented as of this encounter Care Teams Kiln Stacker Relationship Specialty Start Date End Date Ricci Julian MD [address] [place] [address] PCP - Hum[employer] 03/07/17 Ricci Julian MD [address] [facility] 110 [place] [address] PCP - General Internal Medicine 08/30/22 Florida Vallejo NP [address] [address] Nurse Practitioner Neurology 06/28/24 documented as of this encounter
--- OUTSIDE RECORDS SUMMARY | 2024-09-19 09:51 | XMS_ITS | Encounter Summary ---
Author Organization [facility] Address [address] [place] [address] Care Team Providers Care Field Marketing Associate Name Role Phone Ricci Julian MD Unavailable [phone] Ricci Julian MD Primary Care Provider [phone] Florida Vallejo NP Unavailable Unavailable Encounter Details Date Type Department Care Team (Late Contact Info) Description 10/27/2022 [facility] 112 [facility] 110 [place] [address] Ricci Julian MD 112 [facility] [address] [place], [place] [id number] Social History Tobacco Use Types Packs/Day Years Used Date Smoking Tobacco: Former Cigarettes Q uit: 1999 Smokeless Tobacco: Never Comments:Stopped smoking > 1 0 years ago. Alcohol Use Standard Drinks/Week Comments Yes 0 (1 standard drink = 0.6 oz pure alcohol) caffeine intake: 4 or more cups per day. Humiliation, Afraid, Rape, and Kick questionnair e [...] or ex-partner? No 10/18/2022 Social Connection and Isolation Panel [NHANES] A nswer Date Recorded In a typical week, how many times do you talk on the phone with family, friends, or neighbors? Twice a week 10/18/2022 How often do you get togethe r with friends or relatives? Once a week 10/18/2022 How often do you attend muslim or church serv ices? Never 10/18/2022 Do you belong to any clubs o r organizations such as muslim groups, unions, fraternal or athletic groups, or school groups? Patient declined 10/18/2022 How often do you attend meet ings of the clubs or organizations you belong to? Never 10/18/2022 Are you , , di vorced, , never , or living with a partner? 10/18/2022 AUDIT-C Answer Date Recorded Q1: How often do you have a drink containing alc ohol? Monthly or less 10/25/2022 Q2: How many drinks containi ng alcohol do you have on a typical day when you are drinking? 1 or 2 10/25/2022 Q3: How often do you have si x or more drinks on one occasion? Never 10/25/2022 Overall Financial Resource Strain (CARDIA) Answe r Date Recorded How hard is it for you to pa y for the very basics like food, housing, medical care, and heating? Patient declined 10/18/2022 PHQ-2 Answer Date Recorded Patient Health Questionnaire-2 Score 0 10/25/2022 [facility] - [facility]ational Stress Questionnaire Answer Date Recorded Do you feel stress - tense, restless, nervous, or anxious, or unable to sleep at night because your mind is troubled all the time - these days? Only a little 10/18/2022 Exercise Vital Sign Answer Date Recorde d On average, how many days pe r week do you engage in moderate to strenuous exercise (like a brisk walk)? 3 days 10/18/2022 On average, how many minutes do you engage in exercise at this level? 30 min 10/18/2022 Hunger Vital Sign Answer Date Recorded Within [...] appointments or from getting medications? Patient declined 10/18/2022 In the past 12 months, has l ack of transportation kept you from meetings, work, or from getting things needed for daily living? Patient declined 10/18/2022 Housing Stability Vital Sign Answer Aris [...] place to sleep or slept in a chcf (including now)? No 10/18/2022 Comments Unknown Sex and Gender Information Value Date Recorded Sex Assigned at Not on file Legal Sex Female 6:50 PM EDT Gender Identity Not on file Sexual Orientation Not on file COVID-19 Exposure Response Date Recorded In the last 10 days, have yo u been in contact with someone who was confirmed or suspected to have Coronavirus/COVID-19? No / Unsure 10/18/2022 9:23 AM EDT documented as of this encounter Plan of Treatment Upcoming Encounters Date Type Department Care Team (Late st Contact Info) Description 09/26/2024 10:20 AM EDT Office Visit [facility] [address] [facility] 130 [place] [address] Megan Pretty MD [address] [place] [address] 10/15/2024 10:00 AM EDT Social Work [facility] [address] [place] [address] Kerry Bradshaw, COMPUTER FORENSICS EXAMINER-S [address] [place] [address] 12/03/2024 9:15 AM EDT Office Visit [facility] [address] [place] [address] Ricci Julian MD [address] [place] [address] 01/01/2025 2:40 PM EDT Office Visit [facility] [address] [place] [address] MichellepedroCheri Honey, SOFTWARE QUALITY TESTER-BAND TACKER [address] [place] [address] 07/02/2025 2:35 PM EDT Office Visit [facility] [address] [place] [address] Cheri Rojas Honey, SOFTWARE QUALITY TESTER-BAND TACKER [address] [place] [address] documented as of this encounter Visit Diagnoses Not on filedocumented in this encounter Additional Health Concerns Assessment Noted Time PHQ-9 Depression Total Score: 0 10/26/19 23 8:00 AM EDT documented as of this encounter Care Teams Field Marketing Associate Relationship Specialty Start Date End Date Ricci Julian MD [address] [facility] 110 [place] [address] PCP - Humana 03/07/17 Ricci Julian MD [address] [place] [address] PCP - General Internal Medicine 08/30/22 Florida Vallejo NP [address] [place] [address] Nurse Practitioner Neurology 06/28/24 documented as of this encounter
--- OUTSIDE RECORDS SUMMARY | 2024-09-19 09:51 | XMS_ITS | Encounter Summary ---
Author Organization [facility] Address [address] [facility] [place] [address] Care Team Providers Care Fruit Farmworker Name Role Phone Ricci Julian MD Unavailable [phone] Ricci Julian MD Primary Care Provider [phone] Florida Vallejo NP Unavailable Unavailable Encounter Details Date Type Department Care Team (Late st Contact Info) Description 09/15/2023 Clinisync Result Encounter [facility] External Department Unsolicited [...] week 10/18/2022 How often do you attend mormon or baptism serv ices? Never 10/18/2022 Do you belong to any clubs o r organizations such as mormon groups, unions, fraternal or athletic groups, or [...] Recorded Patient Health Questionnaire-2 Score 0 10/25/2022 [facility] of Occupat ional Health - Occupational Stress [...] place to sleep or slept in a half-way (including now)? No 10/18/2022 Comments Unknown Sex [...] Visit [facility] [address] [facility] [address] [place] [phone] Megan Pretty MD [address] [facility] 130 [place] [address] 10/15/2024 10:00 AM EDT Social Work [facility] [address] [place] [address] Kerry Bradshaw S, HOLISTIC NUTRITIONIST-S [address] [place] [address] 12/03/2024 9:15 AM EDT Office Visit [facility] [address] [facility] [address] [place] [address] Ricci Julian MD [address] [facility] [address] [place] [address] 01/01/2025 2:40 PM EDT Office Visit [facility] [address] [facility] 350 [place] [address] Cheri Rojas, DRUG SAFETY ASSISTANT-FLASH RANGING CREWMEMBER [address] [place] [address] 07/02/2025 2:35 PM EDT Office Visit [facility] [address] [place] [address] Cheri Rojas, DRUG SAFETY ASSISTANT-FLASH RANGING CREWMEMBER [address] [place] [address] documented as of this encounter Goals Goal Patient Goal Type Associated Problems Recent Progress Patient-Stated? Author Help patient manage antidepressant medication Care Plan Patient on antidepressant monitoring plan Jessi Ochoa NP documented as of this encounter Procedures Procedure Name Priority Date/Time Associated Diagnosis Comments US THYROID 09/15/2023 10:39 AM EDT [facility] THYROGLOBULIN Routine 09/15/2023 10: 18 AM EDT ALL THYROID STIM HORMONE Routine 09/15/2023 10:18 AM EDT documented in this encounter Results * US thyroid (09/15/2023 10:39 AM EDT) Anatomical Region Laterality Modality Head, Neck Ultrasound 09/15/2023 10:3 9 AM EDT Narrative 09/15/2023 10:41 [place] [address] Ultrasound Report Signed Patient: YANIRA BUNN MR#: [id number] : 1950 Acct:[id number] Age/Sex: 73 / F ADM Date: 09/15/23 Loc: US Attending Dr: Megan Pretty M.D. Ordering Physician: Megan Pretty M.D. Date of Service: 09/15/23 Procedure(s): US thyroid Accession Number(s): [id number] cc: RICCI JULIAN ; Megan Pretty M.D. [address] [address] Patient Name: YANIRA BUNN MRN: [facility]:[id number] date: 1950 Sex: F Assigned Patient Location: US Current Patient Location: US Accession/Order Number: [id number] Exam Date: 09/15/2023 09:45 Report Date: 09/15/2023 10:39 At the request of: MEGAN PRETTY Procedure: US thyroid EXAMINATION: US thyroid HISTORY: Papillary Microcarcinoma Of Thyroid C73 COMPARISON: 02/23/2023 TECHNIQUE: Sonographic images of the thyroid gland were obtained. FINDINGS: Remote total thyroidectomy Area of soft tissue in the right thyroid fossa measuring 5.3 x 4.7 x 11.3 mm. Area of soft tissue in the left thyroid fossa measuring 16.5 x 11.0 x 3.8 mm US/US thyroid IMPRESSION: Stable residual/recurrent thyroid tissue or postsurgical changes in the thyroid bed No new mass or lymphadenopathy Electronically authenticated by: LEILA HARMAN Date: 09/15/2023 10:39 Dictated By: Leila Harman M.D. Signed By: 09/15/23 1041 DD/ 1039 TD/TT: Nuclear Design Engineer: Procedure Note Radiology, Radiologist, MD - 09/15/2023 [place] [address] Ultrasound Report Signed Patient: YANIRA BUNN EMR#: [id number] : 1950cct:[id number] Age/Sex: 73 / FADM Date: 09/15/23 Loc: US Attending Dr: Megan Pretty M.D. Ordering Physician: Megan Pretty M.D. Date of Service: 09/15/23 Procedure(s): US thyroid Accession Number(s): [id number] cc: RICCI JULIAN ; Megan Pretty M.D. [address] [place] [address] Patient Name: YANIRA BUNN MRN: [facility]:[id number] date: 1950 Sex: F Assigned Patient Location: US Current Patient Location: US Accession/Order Number: [id number] Exam Date: 09/15/2023 09:45 Report Date: 09/15/2023 10:39 At the request of: MEGAN PRETTY Procedure: US thyroid EXAMINATION: US thyroid HISTORY: Papillary Microcarcinoma Of Thyroid C73 COMPARISON: 02/23/2023 TECHNIQUE: Sonographic images of the thyroid gland were obtained. FINDINGS: Remote total thyroidectomy Area of soft tissue in the right thyroid fossa measuring 5.3 x 4.7 x 11.3mm. Area of soft tissue in the left thyroid fossa measuring 16.5 x 11.0 x 3.8mm US/US thyroid IMPRESSION: Stable residual/recurrent thyroid tissue or postsurgical changes in the thyroid bed No new mass or lymphadenopathy Electronically authenticated by: LEILA HARMAN Date: 09/15/2023 10:39 Dictated By: Leila Harman M.D. Signed By:09/15/23 1041 DD/ 1039 TD/TT: Nuclear Design Engineer: us Generic External Data Provider IMG US PROCEDURES Final Result * [facility] THYROGLOBULIN (09/15/2023 10:18 AM EDT) THYROGLOBULIN (TG-JOSE MIGUEL) <2.0 . ng/mL TB Comment: This test was developed and its performance characteristics determined by [facility]. It has not been cleared or approved by the Food and Drug Administration. Reference Range: Pubertal Children and Adults: <40 According to the National Academy of Clinical Biochemistry, the reference interval for Thyroglobulin (TG) should be related to euthyroid patients and not for patients who underwent thyroidectomy. TG reference intervals for these patients depend on the residual mass of the thyroid tissue left after surgery. Establishing a post-operative baseline is recommended. The assay quantitation limit is 2.0 ng/mL. Performed at: [facility] [address] [place] [id number] [employer] Officer: Kodi Maxwell MD, Phone: [phone] 09/15/2023 10:1 8 AM EDT 09/15/2023 10:22 AM EDT Narrative [facility] - 09/25/2023 2:06 AM EDT us Megan Pretty MD [facility] Final Result [facility] * (ABNORMAL) ALL THYROID STIM HORMONE (09/15/2023 10:18 AM EDT) THYROID STIMULATING HORMONE 5.265(H) 0.358 - 3.740 uIU/mL TBH 09/15/2023 10:1 8 AM EDT 09/15/2023 10:22 AM EDT Narrative [facility] - 09/15/2023 11:49 AM EDT us Generic External Data Provider [facility] F inal Result Performing Organization Address City/[facility] Co de Phone Number [facility] documented in this encounter Visit Diagnoses Not on filedocumented in this encounter Additional Health Concerns Active Problems Noted Date Diagnosed Date Patient on antidepressant monitoring plan 2023 Assessment Noted Time PHQ-9 Depression Total Score: 0 10/26/19 23 8:00 AM EDT documented as of this encounter Care Teams Fruit Farmworker Relationship Specialty Start Date End Date Ricci Julian MD [address] [facility] [address] [place] [address] PCP - Humana 03/07/17 Ricci Julian MD [address] [facility] [place] [address] PCP - General Internal Medicine 08/30/22 Florida Vallejo NP [address] [facility] [address] [place] [address] Nurse Practitioner Neurology 06/28/24 documented as of this encounter
--- OUTSIDE RECORDS SUMMARY | 2024-09-19 09:51 | XMS_ITS | Encounter Summary ---
Author Organization [facility] Address [address] [place] [address] Care Team Providers Care Machine Deicer Element Winder Name Role Phone Ricci Julian MD Unavailable [phone] Ricci Julian MD Primary Care Provider [phone] Florida Vallejo NP Unavailable Unavailable Encounter Details Date Type Department Care Team (Late st Contact Info) Description 02/23/2023 Orders Only [facility] [address] [place] [address] A, Unknown Practice [address] [place] [phone] Social History Tobacco Use Types Packs/Day Years [...] How often do you attend muslim or roman catholic serv ices? Never 10/18/2022 Do you belong [...] Recorded Patient Health Questionnaire-2 Score 0 10/25/2022 [facility] of Occupat ional [facility] - Occupational Stress Questionnaire Answer Date [...] in a jail (including now)? No 10/18/2022 Comments Unknown Sex [...] Visit [facility] [address] [facility] [address] [place] [address] Megan Pretty MD [address] [facility] [address] [place] [address] 10/15/2024 10:00 AM EDT Social Work [facility] [address] [place] [address] Kerry Bradshaw, COMMUNITY ADVOCATE-S [address] [place] [address] 12/03/2024 9:15 AM EDT Office Visit [facility] [address] [facility] [address] [place] [address] Ricci Julian MD [address] [facility] [address] [place] [address] 01/01/2025 2:40 PM EDT Office Visit [facility] [address] [place] [address] Cheri Rojas, FLASH RANGING CREWMEMBER-NUCLEAR MEDICINE CHIEF TECHNOLOGIST [address] [place] [address] 07/02/2025 2:35 PM EDT Office Visit [facility] [address] [place] [address] Cheri Rojas, FLASH RANGING CREWMEMBER-NUCLEAR MEDICINE CHIEF TECHNOLOGIST [address] [place] [address] documented as of this encounter Procedures Procedure Name Priority Date/Time Associated Diagnosis Comments US THYROID Routine 02/23/2023 11:16 AM EST documented in this encounter Results * US thyroid (02/23/2023 11:16 AM EST) Anatomical Region Laterality Modality Head, Neck Ultrasound us Unknown Practice A IMG US PROCEDURES Final Resul t documented in this encounter Visit Diagnoses Not on filedocumented in this encounter Additional Health Concerns Assessment Noted Time PHQ-9 Depression Total Score: 0 10/26/19 23 8:00 AM EDT documented as of this encounter Care Teams Machine Deicer Element Winder Relationship Specialty Start Date End Date Ricci Julian MD [address] [place] [address] PCP - Humana 03/07/17 Ricci Julian MD [address] [place] [address] PCP - General Internal Medicine 08/30/22 Florida Vallejo NP [address] [place] [address] Nurse Practitioner Neurology 06/28/24 documented as of this encounter
--- OUTSIDE RECORDS SUMMARY | 2024-09-19 09:51 | XMS_ITS | Clinical Summary ---
Author Organization [facility] tem Address [id number] [address] [place] [address] Care Team Providers Care Small Machine Bindery Operator Name Role Phone Ricci Julian MD Primary Care Provider [phone] Family History Medical History Relation Name Comments Breast cancer Neg Hx Social History Tobacco Use Types Packs/Day Years Used Date Smoking Tobacco: Never Assessed Childcare Answer Date Recorded Childcare Unknown 08/16/2018 Employment Answer Date Recorded Employment Unknown 08/16/2018 Purpose - Life Answer Date Recorded Purpose and direction in life Unknown Comments No Sex and Gender Information Value Date Recorded Sex Assigned at Not on file Legal Sex Female 11:45 AM EDT Gender Identity Not on file Sexual Orientation Not on file Last Filed Vital Signs Vital Sign Reading Time Taken Comments Blood Pressure - - Pulse - - Temperature - - Respiratory Rate - - Oxygen Saturation - - Inhaled Oxygen Concentration - - Weight 72.6 kg (160 lb) 08/29/2020 11:14 AM EDT Height 162.6 cm (5' 4 ) 08/29/2020 11:14 AM EDT Body Mass Index 27.46 08/29/2020 11:14 AM EDT Plan of Treatment Upcoming Encounters Date Type Department Care Team (Latest Contact Info) Description 11/15/2024 12:45 PM EDT Hospital Encounter [facility] [address] [place] [address] Damaris Tillman MD [address] [place] [address] 11/15/2024 12:45 PM EDT - 11/15/2024 1:30 PM EDT Surgery [facility] [address] [place] [address] Damaris Tillman MD [address] [place] [address] EXTRACTION CATARACT INTRAOCULAR LENS [06028 (CPT )] 11/28/2024 2:50 PM EDT Support Visit [facility] - Pre Admit [address] [place] [address] 11/29/2024 12:45 PM EDT Hospital Encounter [facility] [address] [place] [address] Damaris Tillman MD [address] [place] [id number] 11/29/2024 12:45 PM EDT - 11/29/2024 1:30 PM EDT Surgery [facility] [address] [facility] [place] [address] Damaris Tillman MD [address] [place] [phone] EXTRACTION CATARACT INTRAOCULAR LENS [16272 (CPT )] Scheduled Procedures Name Priority Associated Diagnoses Date/Ti me EXTRACTION CATARACT INTRAOCU LAR LENS cataract left eye 11/15/2024 12:45 PM EDT EXTRACTION CATARACT INTRAOCU LAR LENS cataract right eye 11/29/2024 12:45 PM EDT Health Maintenance Due Date Last Done Comments Depression Screening 1962 Tobacco Screening 1962 Zoster (Shingles) Vaccine (1 of 2) 01/05/1998 Fall Risk Screening 01/05/2013 Influenza Vaccine 11/05/2024 DTaP,Tdap and Td Vaccines (2 - Td or Tdap) 08/03/2031 08/02/2021 Goals Goal Patient Goal Type Associated Problems Recent Progress Patient-Stated? Author Autogenera raoul Goal Care Plan Autogenerated Problem No Viktoriya Mckee Autogenera raoul Goal Care Plan Autogenerated Problem No Viktoriya Mckee Medical Devices Not on file Additional Health Concerns Active Problems Noted Date Diagnosed Date Autogenerated Problem 09/05/2024 Autogenerated Problem 09/05/2024 Insurance [employer] MEDICARE Care Teams Small Machine Bindery Operator Relationship Specialty Start Date End Date Ricci Julian MD 112 [facility] [address] [place] [address] PCP - General Internal Medicine 10/18/23
--- OUTSIDE RECORDS SUMMARY | 2024-09-19 09:51 | XMS_ITS | Clinical Summary ---
Author Organization [facility] Healthcare Address [address] [place] [address] Care Team Providers Care Healthcare Advisory Services Manager Name Role Phone Rcici Julian MD Unavailable [phone] Ricci Julian MD Primary Care Provider [phone] Joseph Roe NP Unavailable Unavailable Allergies No known active allergies Medications Calcium Citrate-Vitamin D (Calcium + D) 315-5 MG-MCG tablet Take 1 tablet by mouth every 12 (twelve) hours Active Methylcobalamin (C42-AUUTWE PO) Take 1 tablet by mouth Daily Active biotin 3 MG tablet Take 1 tablet by mouth Daily Active Cannabinoids (medical cannabis) Take 1 each by mouth Daily Active alendronate (Fosamax) 70 MG tabletIndications :Age related osteoporosis, unspecified pathological fracture presence Take 1 tablet (70 mg) by mouth every 7 (seven) days Take in the morning with a full glass of water, on an empty stomach, and do not take anything else by mouth or lie down for the next 30 min 12 tablet 3 Active tiZANidine (Zanaflex) 4 MG tabletIndications :Chronic bilateral low back pain without sciatica Take 1 tablet (4 mg) by mouth every 8 (eight) hours 30 tablet 5 024 Active DULoxetine (Cymbalta) [address] capsuleIndication s:Anxiety and depression TAKE 1 CAPSULE BY MOUTH EVERY DAY 100 capsule 3 Active PARoxetine CR (Paxil-CR) 37.5 MG 24 hr tabletIndications :Anxiety and depression TAKE 1 TABLET BY MOUTH EVERY DAY IN THE MORNING FOR 90 DAYS 100 tablet 3 Active levothyroxine (Synthroid) 150 MCG tabletIndications :Postoperative hypothyroidism Take 1 tablet (150 mcg) by mouth in the morning. Take before meals. 90 tablet 3 025 2025 Active Additional Information Patient taking differently: 125 mcgOral Daily before breakfast, Morning, Reported on 08/30/2024 famotidine (Pepcid) 20 MG tabletIndications :LPRD (laryngopharyngea l reflux disease) TAKE 1 TABLET BY MOUTH AT BEDTIME 90 tablet 025 Active Multiple Vitamins-Minerals (ALIVE WOMENS GUMMY PO) Refill(s): 0, Maintenance 025 Active pantoprazole (ProtoNix) 40 MG EC tablet Take 40 mg by mouth in the morning and 40 mg before bedtime. 025 Active sucralfate (Carafate) 1 GM/10ML suspension TAKE 10ML BY MOUTH 3 TO 4 TIMES DAILY 025 Active hydrocortisone 2.5 % creamIndications: Other seborrheic dermatitis Apply thin layer to affected areas on the neck bid prn for flares 30 g 11 025 Active ketoconazole (NIZOral) 2 % creamIndications: Other seborrheic dermatitis Apply thin layer to affected area once daily when flaring. 60 g 11 025 Active PARoxetine CR (Paxil-CR) 12.5 MG 24 hr tabletIndications :Anxiety and depression TAKE 1 TABLET BY MOUTH EVERY DAY IN THE MORNING 90 tablet 1 025 Active ziprasidone (Geodon) 40 MG capsuleIndication s:Anxiety and depression Take 1 capsule (40 mg) by mouth in the morning and 1 capsule (40 mg) in the evening. Take with meals. 200 capsule 3 025 2025 Active Multiple Vitamin (MULTIVITAMIN ADULT PO) Take 1 tablet by mouth Daily 2024 Discontinued(D uplicate order) omega-3 acid ethyl esters (Lovaza) 1 g capsule Take 1 g by mouth Daily 2024 Discontinued ziprasidone (Geodon) 40 MG capsuleIndication s:Anxiety and depression TAKE 1 CAPSULE BY MOUTH TWICE A DAY WITH FOOD 200 capsule 3 024 2024 Discontinued(R eorder) omeprazole (PriLOSEC) [address] capsuleIndication s:LPRD (laryngopharyngea l reflux disease) Take 1 capsule (40 mg) by mouth in the morning. Take before meals. Do not crush or chew.. 90 capsule 025 2024 Discontinued(T herapy completed) Active Problems Problem Noted Date Diagnosed Date Hyperlipidemia 08/23/2024 Parkinsonism, unspecified 08/23/2024 Overview (08/23/2024): Noted by HORTENCIA Carrera DYE LAB TECHNICIAN last documented on [id number] TAMIA (generalized anxiety disorder) 08/23/2024 Mild cognitive impairment 08/23/2024 Postoperative hypothyroidism 09/21/2023 Benign neoplasm of cerebral meninges 06/15/2023 Chronic back pain 06/15/2023 Chronic fatigue 06/15/2023 Hearing loss 06/15/2023 Hypoglycemia 06/15/2023 Vitamin D deficiency 06/15/2023 Iron deficiency 10/25/2022 Former smoker 10/25/2022 Anxiety and depression 08/26/2022 LPRD (laryngopharyngeal reflux disease) 08/27/19 Major depressive disorder, recurrent, moderate 0 08/26/2022 Papillary microcarcinoma of thyroid 08/26/2022 Thyroid mass 08/26/2022 Thyromegaly 08/26/2022 Resolved Problems Problem Noted Date Diagnosed Date Resolved Date Menopausal hot flushes 06/15/202311/01 Menopause 06/15/2023 11/02/2023 Thyroid cancer 06/15/2023 11/02/2023 Age-related osteoporosis wit hout current pathological fracture 08/26/2022 08/26/2022 Aphasia 08/26/2022 08/26/2022 Chronic laryngitis 08/26/2022 3 Decreased estrogen level 08/26/2022 Degenerative disc disease, lumbar 08/26/2022 08/26/2022 Difficulty walking 08/26/2022 3 Hoarseness 08/26/2022 11/02/2023 Arthritis of left knee 08/26/202208/26 Arthritis of right knee 08/26/202208/06 Internal derangement of left knee 08/26/2022 08/26/2022 Other atopic dermatitis 08/26/202208/06 Perioral dermatitis 08/26/2022 08/27/19 Primary osteoarthritis invol ving multiple joints 08/26/2022 08/26/2022 Primary osteoarthritis of right hip 08/26/2022 08/26/2022 Restless legs syndrome (RLS) 08/26/2022 08/26/2022 Shuffling gait 08/26/2022 08/26/2022 Status post right hip replacement 08/26/2022 08/26/2022 Encounters Date Type Department Care Team Description 09/17/2024 Refill [facility] [address] [place] [address] Megan Pretty MD LPRD (laryngopharyngeal reflux disease) 09/03/2024 10:00 AM EDT Social Work [facility] [address] [facility] [place] [address] Kerry Bradshaw, CREDIT INTERN-S Anxiety; Moderate episode of recurrent major depressive disorder (HCC) 09/03/2024 Abstract [facility] [address] [facility] [address] [place] [address] Ricci Julian MD 09/03/2024 Bamboo flowsheet [facility] [address] [facility] [place] [address] Kerry Bradshaw, CREDIT INTERN-S 09/03/2024 Travel 08/30/2024 9:30 AM EDT Office Visit [facility] [address] [facility] [address] [place] [address] Ricci Julian MD Anxiety and depression 08/30/2024 Bamboo flowsheet [facility] [address] [place] [address] Ricci Julian MD 08/30/2024 Travel 08/27/2024 Abstract [facility] [address] [place] [address] Ricci Julian MD 08/23/2024 8:30 AM EDT Office Visit [facility] [address] [place] [address] Ricci Julian MD Major depressive disorder, recurrent, moderate (HCC) (Primary Dx); TAMIA (generalized anxiety disorder) ; Mild cognitive impairment 08/23/2024 Bamboo flowsheet [facility] [address] [place] [address] Ricci Julian MD 08/23/2024 Travel 08/13/2024 Abstract [facility] [address] [place] [address] Ricci Julian MD 08/09/2024 Orders Only [facility] [address] [place] [address] Karen Burgess LPN Cognitive impairment; Alexia; Aphasia; Meningioma (HCC) 08/02/2024 Refill [facility] [address] [place] [address] Ricci Julian MD Anxiety and depression 07/23/2024 10:00 AM EDT Social Work [facility] [address] [facility] [address] Kerry Bradshaw, CREDIT INTERN-S Anxiety; Moderate episode of recurrent major depressive disorder (HCC) 07/23/2024 Bamboo flowsheet [facility] [address] [facility] [address] Kerry Bradshaw, CREDIT INTERN-S 07/23/2024 Travel 07/09/2024 1:30 PM EDT Office Visit [facility] [address] [place] [address] [address] [place] [address] Pako Lyles MD Primary progressive aphasia (HCC) (Primary Dx); Cognitive impairment; Alexia; Aphasia; Memory loss; Concentration deficit; Depression with anxiety 07/09/2024 Bamboo flowsheet [facility]ESS[facility] N[facility] [address] [place] [address] [address] [place] [address] Pako Lyles MD 07/05/2024 Clinisync Result Encounter [facility] External Department Unsolicited Joseph Roe NP 07/02/2024 3:20 PM EDT Office Visit [facility] [address] [facility] [address] [place] [address] Cheri Rojas, ENGINEER BYPRODUCT-DYE LAB TECHNICIAN Other seborrheic dermatitis (Primary Dx); Seborrheic keratosis, inflamed; Androgenic alopecia 07/02/2024 Travel 06/28/2024 10:20 AM EDT Office Visit [place] [address] [place] [address] Joseph Roe NP Cognitive impairment (Primary Dx); Alexia; Aphasia; Meningioma (HCC); Cervical spondylosis; Spondylosis of lumbosacral region, unspecified spinal osteoarthritis complication status 06/28/2024 Bamboo flowsheet [place] [address] [place] [address] Joseph Roe NP from Last 3 Months Immunizations Immunization Administration Dates Next Due Tdap 08/02/2021 Family History Medical History Relation Name Comments Alcohol abuse Brother Mental illness Brother Stroke Father Rupert Wilson Depression Mother Romaine Wilson Hypertension Mother Romaine Wilson Sepsis Mother Romaine Wilson Relation Name Status Comments Brother x7 Daughter x2 Father Rupert Wilson Mother Romaine Wilson Sister x2 Son x4 Social History Tobacco Use Types Packs/Day Years Used Date Smoking Tobacco: Former Cigarettes 2 36.9 0 05/29/1962 - 04/07/1999 Smokeless Tobacco: Never Tobacco Cessation:Counseling Given: Not Answered Comments:Stopped smoking [...] How often do you attend chur or baptism services? Patient declined 10/28/2023 Do you belong to any clubs o r organizations such as congregational groups, unions, fraternal or athletic groups, or [...] Recorded Patient Health Questionnaire-2 Score 2 08/23/2024 [facility] [...] place to sleep or slept in a snf (including now)? No 10/18/2022 Housing Stability Vital Sign Answer Aris e Recorded In the last 12 months, was t here a time when you were not able to pay the mortgage or rent on time? No 10/28/2023 Number of Times Moved in the Last Year Not on fi le 10/28/2023 At any time in the past 12 m [facility], were you homeless or living in a snf (including now)? No 10/28/2023 Comments Unknown Sex and Gender Information Value Date Recorded Sex Assigned at Not on file Legal Sex Female 6:50 PM EDT Gender Identity Not on file Sexual Orientation Not on file Last Filed Vital Signs Vital Sign Reading Time Taken Comments Blood Pressure 122/70 08/30/2024 9:26 AM EDT Pulse 87 08/30/2024 9:26 AM EDT Temperature 36.4 C (97.5 F) 06/15/2023 9:06 AM EDT Respiratory Rate 16 08/23/2024 8:40 AM EDT Oxygen Saturation 97% 08/30/2024 9:26 AM EDT Inhaled Oxygen Concentration - - Weight 57.6 kg (127 lb) 08/30/2024 9:26 AM EDT Height 165.1 cm (5' 5 ) 08/30/2024 9:26 AM EDT Body Mass Index 21.13 08/30/2024 9:26 AM EDT Plan of Treatment Upcoming Encounters Date Type Department Care Team (Late st Contact Info) Description 09/26/2024 10:20 AM EDT Office Visit [facility] [address] [facility] [address] [place] [address] Megan Pretty MD [address] [facility] [address] [place] [address] 10/15/2024 10:00 AM EDT Social Work [facility] [address] [facility] [place] [address] Kerry Bradshaw S, CREDIT INTERN-S [address] [place] [facility] [place] [address] 12/03/2024 9:15 AM EDT Office Visit [facility] [address] [facility] [address] [place] [address] Ricci Julian MD [address] [facility] [address] [place] [address] 01/01/2025 2:40 PM EDT Office Visit [facility] [address] [place] [address] Cheri Rojas, ENGINEER BYPRODUCT-DYE LAB TECHNICIAN [address] [place] [address] 07/02/2025 2:35 PM EDT Office Visit [facility] [address] [place] [address] Cheri Rojas, ENGINEER BYPRODUCT-DYE LAB TECHNICIAN [address] [place] [address] Health Maintenance Due Date Last Done Comments Pneumococcal Vaccine: 65+ Ye ars (1 of 1 - PCV) 01/05/1998 Influenza Vaccine (#1) 2024 Mammogram Discontinued 11/16/2023, 08/03/2022, 09/03/2021, Additional history exists Colonoscopy Discontinued 04/09/2024, 04/03/2015 Colorectal Cancer Screening Discontinued CT Colonography Discontinued FIT-DNA Discontinued FIT Discontinued FOBT Discontinued Sigmoidoscopy Discontinued Goals Goal Patient Goal Type Associated Problems Recent Progress Patient-Stated? Author Help patient manage antidepressant medication Care Plan Patient on antidepressant monitoring plan Jessi Ochoa NP Procedures Procedure Name Priority Date/Time Associated Diagnosis Comments MRI HEAD/BRAIN WO/W CONTR 07/05/2024 5:15 PM EDT CRYOTHERAPY SKIN LESION Routine 07/02/2024 3:15 PM EDT Seborrheic keratosis, inflamed BI MAMMOGRAM SCREENING TOMOSYNTHESIS BILATERAL Routine 11/16/2023 9:42 AM EDT Encounter for screening mammogram for malignant neoplasm of breast COLONOSCOPY Routine 04/03/2015 12:00 PM EST from Last 3 Months or Most Recently Relevant to Health Maintenance Results * MRI HEAD/BRAIN WO/W CONTR (07/05/2024 5:15 PM EDT) Anatomical Region Laterality Modality Radiographic Adalgisa ging 07/05/2024 5:15 PM EDT Narrative 07/05/2024 5:17 [place] [address] Magnetic Resonance Report Signed Patient: YANIRA WILSON MR#: [id number] : 1950 Acct:[id number] Age/Sex: 74 / F ADM Date: 07/05/24 Loc: LAB Attending Dr: Joseph Roe NP Ordering Physician: Joseph Roe NP Date of Service: 07/05/24 Procedure(s): MR head/brain wo/w con Accession Number(s): [id number] cc: Joseph Roe NP; Physician,Non-Staff M.D. The [address] [address] Patient Name: YANIRA WILSON MRN: [id number] date: 1950 Sex: F Assigned Patient Location: LAB Current Patient Location: LAB Accession/Order Number: [id number] Exam Date: 07/05/2024 17:12 Report Date: 07/05/2024 17:15 At the request of: JOSEPH ROE NP Procedure: MR head/brain wo/w con MRI of the brain with and without IV contrast. Reason for exam: Cognitive impairment. History meningioma. COMPARISON: None. TECHNIQUE: Multisequence, multiplanar imaging of the brain was performed before and after the use of IV contrast. FINDINGS: No evidence of restriction diffusion is an diffusion-weighted imaging. No evidence of blood products are seen on T2 Star imaging. Cortical atrophy with mild chronic microvascular ischemic changes are noted. Posterior fossa appears unremarkable. Intraorbital contents appear unremarkable. No significant paranasal sinus disease. Postcontrast imaging demonstrates no abnormal enhancement. MR/MR head/brain wo/w con IMPRESSION: No acute process. Cortical atrophy with mild chronic microvascular ischemic changes. No abnormal enhancement. Impression dictated by: Rikki Garcia Jr., D.O. 07/05/2024 5:15 PM Dictation Location: [place] [address] Electronically authenticated by: [id number] Y Date: 07/05/2024 17:15 Dictated By: Rikki Garcia M.D. Signed By: 07/05/241716 DD/ 14 TD/TT: Marketing Content Specialist: Procedure Note Radiology, Radiologist, MD - 07/05/2024 [place] [address] Magnetic Resonance Report Signed Patient: YANIRA WILSON EMR#: [id number] : 1950cct:[id number] Age/Sex: 74 / FADM Date: 07/05/24 Loc: LAB Attending Dr: Joseph Roe NP Ordering Physician: Joseph Roe NP Date of Service: 07/05/24 Procedure(s): MR head/brain wo/w con Accession Number(s): [id number] cc: Roe,Joseph RESTORATION OFFICER; Physician,Non-Staff MTommy The [place] [address] Patient Name: YANIRA WILSON MRN: [id number] date: 1950 Sex: F Assigned Patient Location: LAB Current Patient Location: LAB Accession/Order Number: [id number] Exam Date: 07/05/2024 17:12 Report Date: 07/05/2024 17:15 At the request of: JOSEPH ROE NP Procedure: MR head/brain wo/w con MRI of the brain with and without IV contrast. Reason for exam: Cognitive impairment. History meningioma. COMPARISON: None. TECHNIQUE: Multisequence, multiplanar imaging of the brain was performed before and after the use of IV contrast. FINDINGS: No evidence of restriction diffusion is an diffusion-weighted imaging. No evidence of blood products are seen on T2 Star imaging.Cortical atrophy with mild chronic microvascular ischemic changes are noted.Posterior fossa appears unremarkable. Intraorbital contents appear unremarkable.No significant paranasal sinus disease. Postcontrast imaging demonstrates no abnormal enhancement. MR/MR head/brain wo/w con IMPRESSION: No acute process. Cortical atrophy with mild chronic microvascular ischemic changes. No abnormal enhancement. Impression dictated by: Nita Ortiz Jr.OCira 07/05/2024 5:15 PM Dictation Location: [place] [address] Electronically authenticated by: [id number] Y Date: 7:15 Dictated By: Rikki Garcia M.D. Signed By:07/05/241716 DD/ 14 TD/TT: Marketing Content Specialist: us Joseph Roe NP IMG XR PROCEDURES Final Result * Cryotherapy, skin lesion (07/02/2024 3:15 PM EDT) us Cheri Rojas ENGINEER BYPRODUCT-DYE LAB TECHNICIAN DERM PROCEDURE ORDERAB LES Final Result * Bilateral screening mammogram with tomosynthesis (11/16/2023 9:42 AM EDT) Anatomical Region Laterality Modality Breast Bilateral Mammography 11/17/2023 10:3 9 AM EDT Impressions 11/17/2023 11:29 AM EDT BIRADS 2 - Benign Follow-up: Routine Screening Mamm Board Certified Radiologists. Accredited by the ACR and FDA. MAMMOGRAPHY IS VERY IMPORTANT TO YOUR HEALTH. THE [employer] GUIDELINES RECOMMEND THAT WOMEN 40 YEARS OF AGE AND OLDER SHOULD HAVE A MAMMOGRAM EVERY YEAR. A REMINDER LETTER WILL BE SENT AT THE APPROPRIATE TIME. THIS FACILITY UTILIZES A REMINDER SYSTEM TO ENSURE ALL PATIENTS RECEIVE REMINDER NOTIFICATIONS AT THE APPROPRIATE TIME BASED ON THE RECOMMENDATIONS OF THIS EXAM. THIS INCLUDES REMINDERS FOR ROUTINE SCREENING MAMMOGRAMS, DIAGNOSTIC MAMMOGRAMS IN WHICH THE PATIENT IS ASKED TO RETURN FOR ADDITIONAL VIEWS, OR OTHER BREAST IMAGING INTERVENTIONS WHEN APPROPRIATE. THE PATIENT WILL BE PLACED IN THE APPROPRIATE REMINDER SYSTEM INCLUDING A REMINDER AT THE APPROPRIATE TIME FOR ANY PENDING ADDITIONAL VIEWS. TRANSCRIBED BY: ELECTRONICALLY SIGNED BY: Rikki Santoyo MD Narrative 11/17/2023 11:29 AM EDT EXAMINATION: BI MAMMOGRAM SCREENING TOMOSYNTHESIS BILATERAL CLINICAL HISTORY:screening COMPARISON: November 04, 2022. RESULT: Density: The breasts are almost entirely fatty Overall appearance is stable. Typically benign calcifications. There is no suspicious mass, asymmetry, architectural distortion, or calcification Procedure Note Rikki Santoyo MD - 11/17/2023 EXAMINATION: BI MAMMOGRAM SCREENING TOMOSYNTHESIS BILATERAL CLINICAL HISTORY:screening COMPARISON: November 04, 2022. RESULT: Density: The breasts are almost entirely fatty Overall appearance is stable. Typically benign calcifications. There is no suspicious mass, asymmetry, architectural distortion, orcalcification IMPRESSION: BIRADS 2 - Benign Follow-up: Routine Screening Mamm Board Certified Radiologists. Accredited by the ACR and FDA. MAMMOGRAPHY IS VERY IMPORTANT TO YOUR HEALTH. THE [employer]IAN CANC[employer] SOCIETYGUIDELINES RECOMMEND THAT WOMEN 40 YEARS OF AGE AND OLDER SHOULD HAVE AMAMMOGRAM EVERY YEAR. A REMINDER LETTER WILL BE SENT AT THE APPROPRIATE TIME. THIS FACILITYUTILIZES A REMINDER SYSTEM TO ENSURE ALL PATIENTS RECEIVE REMINDERNOTIFICATIONS AT THE APPROPRIATE TIME BASED ON THE RECOMMENDATIONS OF THISEXAM. THIS INCLUDES REMINDERS FOR ROUTINE SCREENING MAMMOGRAMS, DIAGNOSTICMAMMOGRAMS IN WHICH THE PATIENT IS ASKED TO RETURN FOR ADDITIONAL VIEWS,OR OTHER BREAST IMAGING INTERVENTIONS WHEN APPROPRIATE. THE PATIENT WILLBE PLACED IN THE APPROPRIATE REMINDER SYSTEM INCLUDING A REMINDER AT THEAPPROPRIATE TIME FOR ANY PENDING ADDITIONAL VIEWS. TRANSCRIBED BY: ELECTRONICALLY SIGNED BY: Rikki Santoyo MD Jacqueline BARRAZA IMG BI PROCEDURES Final Result * Colonoscopy (04/03/2015 12:00 PM EST) Anatomical Region Laterality Modality Endoscopy 04/03/2015 12:0 0 PM EST Narrative 04/03/2015 12:00 PM EST PERFORMED AT [facility] LOCATION:[id number] Negative Procedure Note CONVERSION, GENERIC - 07/22/2022 PERFORMED AT [facility] LOCATION:[id number] Negative Ricci Julian MD ENDOSCOPY PROCEDURE ORDERABLES Final Result from Last 3 Months or Most Recently Relevant to Health Maintenance Additional Health Concerns Active Problems Noted Date Diagnosed Date Patient on antidepressant monitoring plan 2023 Insurance [employer] MEDICARE ADVANTAGE Care Teams Healthcare Advisory Services Manager Relationship Specialty Start Date End Date Ricci Julian MD [address] [facility] [address] [place] [address] PCP - [employer] 03/07/17 Ricci Julian MD [address] [facility] [address] [place] [address] PCP - General Internal Medicine 08/30/22 Joseph Roe NP [address] [facility] [address] [place] [address] Nurse Practitioner Neurology 06/28/24
--- OUTSIDE RECORDS SUMMARY | 2024-09-19 09:51 | XMS_ITS | Encounter Summary ---
Author Organization [facility] Address [address] [place] [address] Care Team Providers Care Billiard Table Assembler Name Role Phone Ricci Julian MD Unavailable [phone] Ricci Julian MD Primary Care Provider [phone] [place] Vallejo NP Unavailable Unavailable Encounter Details Date Type Department Care Team ([facility] Contact Info) Description 08/27/2024 Abstract [facility] [address] [facility] [address] [place] [address] Ricci Julian MD [address] [facility] [address] [place], [place] [address] Social History Tobacco Use Types Packs/Day Years [...] often do you attend chur ch or church services? Patient declined 10/28/2023 Do you belong to any clubs o r organizations such as worship groups, unions, fraNeocleus or athletic groups, or school groups? Patient [...] Recorded Patient Health Questionnaire-2 Score 2 08/23/2024 [facility] - [...] place to sleep or slept in a mcfp (including now)? No 10/18/2022 Housing Stability Vital Sign Answer Aris e Recorded In the last 12 months, was t here a time when you were not able to pay the mortgage or rent on time? No 10/28/2023 Number of Times Moved in the Last Year Not on fi le 10/28/2023 At any time in the past 12 m [facility], were you homeless or living in a mcfp (including now)? No 10/28/2023 Comments Unknown Sex [...] EDT Office Visit [facility] [address] [facility] [address] [place] [address] Megan Pretty MD [address] [facility] [address] [place] [address] 10/15/2024 10:00 AM EDT Social Work [facility] [address] [place] [facility] [address] Kerry Bradshaw LISW-S [address] [facility] [place] [address] 12/03/2024 9:15 AM EDT Office Visit [facility] [address] [place] [address] Ricci Julian MD [address] [place] [address] 01/01/2025 2:40 PM EDT Office Visit [facility] [address] [place] [address] Cheri Rojas, ASSOCIATE PROFESSOR OF ANTHROPOLOGY-FOOD SERVICES DIRECTOR [address] [place] [address] 07/02/2025 2:35 PM EDT Office Visit [facility] [address] [place] [address] Cheri Rojas, ASSOCIATE PROFESSOR OF ANTHROPOLOGY-FOOD SERVICES DIRECTOR [address] [place] [address] documented as of this encounter Goals Goal [...] documented as of this encounter Care Teams Billiard Table Assembler Relationship Specialty Start Date End Date Ricci Julian MD [address] [place] [address] PCP - [employer] 03/07/17 Ricci Julian MD [address] [facility] [address] [place] [address] PCP - General Internal Medicine 08/30/22 Florida Vallejo NP [address] [facility] [address] [place] [address] Nurse Practitioner Neurology 06/28/24 documented as of this encounter
--- OUTSIDE RECORDS SUMMARY | 2024-09-19 09:51 | XMS_ITS | Encounter Summary ---
Author Organization [facility] Address [address] [place] [address] Care Team Providers Care Dramatic Agent Name Role Phone Ricci Julian MD Unavailable [phone] Ricci Julian MD Primary Care Provider [phone] [place] Vallejo NP Unavailable Unavailable Encounter Details Date Type Department Care Team (Late st Contact Info) Description 03/14/2024 Clinisync Result Encounter [facility] External Department Unsolicited Megan Pretty MD [address] [address] Social History Tobacco Use Types Packs/Day Years [...] How often do you attend chur or yarsanism services? Patient declined 10/28/2023 Do you belong to any clubs o r organizations such as samaritan groups, unions, fraternal or athletic groups, or [...] Recorded Patient Health Questionnaire-2 Score 0 10/28/2023 [facility] Occupat ional Health - Occupational Stress [...] place to sleep or slept in a fpc (including now)? No 10/18/2022 Housing Stability Vital Sign Answer Aris e Recorded In the last 12 months, was t here a time when you were not able to pay the mortgage or rent on time? No 10/28/2023 Number of Times Moved in the Last Year Not on fi le 10/28/2023 At any time in the past 12 m [facility], were you homeless or living in a fpc (including now)? No 10/28/2023 Comments Unknown Sex [...] [facility] [address] [facility] [address] [place] [address] Megan Pretty MD 112 [facility] 130 [place] [address] 10/15/2024 10:00 AM EDT Social Work [facility] [address] [place] [place] [address] Kerry Bradshaw S, MANAGER PLAN-S [address] [facility], [place] [address] 12/03/2024 9:15 AM EDT Office Visit [facility] [address] [place] [address] Ricci Julian MD [address] [place] [address] 01/01/2025 2:40 PM EDT Office Visit [facility] [address] [place] [address] Cheri Rojas, REGIONAL SALES REPRESENTATIVE-SENIOR IT ENGINEER [address] [place] [address] 07/02/2025 2:35 PM EDT Office Visit [facility] [address] [place] [address] Cheri Rojas, REGIONAL SALES REPRESENTATIVE-SENIOR IT ENGINEER [address] [place] [address] documented as of this encounter Goals Goal Patient Goal Type Associated Problems Recent Progress Patient-Stated? Author Help patient manage antidepressant medication Care Plan Patient on antidepressant monitoring plan Jessi Ochoa, CARLITOS documented as of this encounter Procedures Procedure Name Priority Date/Time Associated Diagnosis Comments US THYROID 03/14/2024 11:40 AM EST documented in this encounter Results * US thyroid (03/14/2024 11:40 AM EST) Anatomical Region Laterality Modality Head, Neck Ultrasound 03/14/2024 11:4 0 AM EST Narrative 03/14/2024 11:43 AM EST The [address] [address] Ultrasound Report Signed Patient: YANIRA BUNN MR#: [id number] : 1950 Acct:[id number] Age/Sex: 74 / F ADM Date: 03/14/24 Loc: US Attending Dr: Megan Pretty M.D. Ordering Physician: Megan Pretty M.D. Date of Service: 03/14/24 Procedure(s): US thyroid Accession Number(s): [id number] cc: Physician,Non-Staff Cha; Megan Pretty M.D. The [place] [id number] Patient Name: YANIRA BUNN MRN: [facility]:[id number] date: 1950 Sex: F Assigned Patient Location: US Current Patient Location: US Accession/Order Number: [id number] Exam Date: 03/14/2024 09:50 Report Date: 03/14/2024 11:40 At the request of: MEGAN PRETTY Procedure: US thyroid EXAMINATION: US thyroid HISTORY: thyroid nodule E04.1 COMPARISON: 09/15/2023 TECHNIQUE: Sonographic images of the thyroid gland were obtained. FINDINGS: Again demonstrated is soft tissue in the right thyroid bed measuring 0.6 x 0.5 x 1.4 cm in the left thyroid bed measuring 0.8 x 1.0 x 1.6 cm. These areas are stable. No new focal mass or lymphadenopathy. US/US thyroid IMPRESSION: Stable residual/recurrent thyroid tissue Electronically authenticated by: LEILA HARMAN Date: 03/14/2024 11:40 Dictated By: Leila Harman M.D. Signed By: 03/14/24 1143 DD/ 1140 TD/TT: Ultrasound Manager: Procedure Note Radiology, Radiologist, MD - 03/14/2024 [place] [address] Ultrasound Report Signed Patient: YANIRA BUNN EMR#: [id number] : 8Acct:[id number] Age/Sex: 74 / FADM Date: 03/14/24 Loc: US Attending Dr: Megan Pretty M.D. Ordering Physician: Megan Pretty M.D. Date of Service: 03/14/24 Procedure(s): US thyroid Accession Number(s): [id number] cc: Physician,Non-Staff Cha; Megan Pretty M.D. [address] [address] Patient Name: YANIRA BUNN MRN: [facility]:[id number] date: 1950 Sex: F Assigned Patient Location: US Current Patient Location: US Accession/Order Number: [id number] Exam Date: 03/14/2024 09:50 Report Date: 03/14/2024 11:40 At the request of: MEGAN PRETTY Procedure: US thyroid EXAMINATION: US thyroid HISTORY: thyroid nodule E04.1 COMPARISON: 09/15/2023 TECHNIQUE: Sonographic images of the thyroid gland were obtained. FINDINGS: Again demonstrated is soft tissue in the right thyroid bed measuring 0.6 x0.5 x 1.4 cm in the left thyroid bed measuring 0.8 x 1.0 x 1.6 cm. These areasare stable. No new focal mass or lymphadenopathy. US/US thyroid IMPRESSION: Stable residual/recurrent thyroid tissue Electronically authenticated by: LEILA HARMAN Date: 03/14/2024 11:40 Dictated By: Leila Harman M.D. Signed By:03/14/24 1143 DD/ 1140 TD/TT: Ultrasound Manager: Megan Pretty MD [facility] US PROCEDURES Final Resul t documented in this encounter Visit Diagnoses Not on filedocumented in this encounter Additional Health Concerns Active Problems Noted Date Diagnosed Date Patient on antidepressant monitoring plan 2023 Assessment Noted Time PHQ-9 Depression Total Score: 0 10/28/19 24 9:19 AM EDT documented as of this encounter Care Teams Dramatic Agent Relationship Specialty Start Date End Date Ricci Julian MD [address] [facility] [address] [place] [address] PCP - [employer] 03/07/17 Ricci Julian MD 112 [facility] 110 [place] [address] PCP - General Internal Medicine 08/30/22 Florida Vallejo NP 112 [facility] 110 [place] [address] Nurse Practitioner Neurology 06/28/24 documented as of this encounter
--- OUTSIDE RECORDS SUMMARY | 2024-09-19 09:51 | XMS_ITS | Patient Health Record ---
Author Organization [facility] Address [address] [place] [address] Care Team Providers Care Settlement Clerk Name Role Phone None, Unknown or Primary Care Provider Unavailab le Allergies No Known Allergies Reason For Referral No Information Medications Medication SIG (Take, Route, Frequency, Duration) Notes Start Date End Date Status Ziprasidone HCl 40 MG TAKE ONE CAPSULE B Y MOUTH TWICE A DAY Oral for 30 Active Triamcinolone Acetonide 0.1 % 1 application to affected area Externally Twice a day for 7 days 08/24/2018 Active Ketoconazole 2 % 1 application Seal Skinner ally Once a day for 30 days 04/05/2019 Active tiZANidine HCl 4 MG TAKE 1 TABLET Oral T ID prn pain for 30 days Active Omeprazole 20 MG 1 capsule 30 minutes before morning meal Orally Once a day for 90 days 06/04/2021 Active PARoxetine HCl ER 37.5 MG TAKE 1 TABLET BY MOUTH EVERY DAY Oral for 30 Active DULoxetine HCl 60 MG TAKE ONE TABLET BY MOUTH EVERY DAY Oral for 30 Active Social History Tobacco Use: Social History Observation Description Date Details (start date - stop date) Former Smoker NA - 04/06/1999 Tobacco Use/Smoking Question Answer Notes Patient is a former smoker When did you stop smoking? 04/06/1999 Alcohol Screen (Audit-C) Question Answer Notes Did you have a drink containing alcohol in the p ast year? 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) Active confirmed Problem 96993140 Other chronic pa in (G89.29) Active confirmed Problem Vitamin D deficiency (28344719) Vitamin D deficiency (E55.9) Active confirmed Problem 31467569 Chronic fatigue (R53.82) Active confirmed Problem 172197525 Hypoglycemia (E16.2) Active confirmed Problem 86788155 Degenerative cervical disc (M50.30) Active confirmed Problem 90136610 Hyperlipidemia, unspecified hyperlipidemia type (E78.5) Active confirmed Problem 549979875 Menopausal hot flushes (N95.1) Active confirmed Problem 331846531 Anxiety with depression (F41.8) Active confirmed Problem 893093135 Thyroid nodule greater than or equal to 1.5 cm in diameter incidentally noted on imaging study (E04.1) Active confirmed Plan Of Treatment Pending Test Test Name Order Date XR Chest PA and Lateral (Routine CXR) * 06/04/2021 MAMM SCREEN BILAT CLARE 3D* 01/08/2019 Insurance Providers Payer Name Payer Address Payer Phone Subscriber Number Group Number Insured Name Patient Relationship to Insured Coverage Start Date Coverage End Date [employer] MEDICARE ADV PLAN [address] [address] [place] [phone] [id number] Miracle Wilson Self - patient is the insured 9 Medical (General) History Medical History History ICD Code Anxiety/Depression GERD hyperlipidemia chronic low back pain Shingles 01/20 Surgical History Surgery Date(Month/Year) Tubal ligation Tonsillectomy L3-L5 fusion 1998 Colostomy 2003 Colostomy reversal 2004 Breast reduction 2005 Left Shoulder Arthroscopy 10/11/2011 Gastric sleeve 2014 RT Tota Hip Replacement 08/08/2017 Hospitalization History Reason Date(Month/Year) see above
--- OUTSIDE RECORDS SUMMARY | 2024-09-19 09:51 | XMS_ITS | Encounter Summary ---
Author Organization [facility] Address [address] [place] [address] Care Team Providers Care Packing Tractor Machine Operator Name Role Phone Ricci Julian MD Unavailable [phone] Ricci Julian MD Primary Care Provider [phone] Florida Vallejo NP Unavailable Unavailable Encounter Details Date Type Department Care Team ([facility] Contact Info) Description 08/13/2024 Abstract [facility] [address] [facility] 110 [place] [address] Ricci Julian MD 112 [facility] 110 [place], [place] [address] Social History Tobacco Use Types Packs/Day Years [...] often do you attend chur ch or mormon services? Patient declined 10/28/2023 Do you belong to any clubs o r organizations such as mosque groups, unions, fraeEye or athletic groups, or school groups? Patient [...] Recorded Patient Health Questionnaire-2 Score 0 10/28/2023 [facility] of Occupat ional Health - Occupational Stress [...] any time in the past 12 m [facility], were you homeless or living [...] EDT Office Visit [facility] [address] [facility] 130 [place] [address] Megan Pretty MD 112 [facility] 130 [place] [address] 10/15/2024 10:00 AM EDT Social Work [facility] [address] [place] [facility] [address] Kerry Bradshaw LISW-S [address] [facility] [place] [address] 12/03/2024 9:15 AM EDT Office Visit [facility] [address] [place] [address] Ricci Julian MD [address] [place] [address] 01/01/2025 2:40 PM EDT Office Visit [facility] [address] [place] [address] Cheri Rojas, LANDSCAPE DESIGNER-BODY TEAM MEMBER [address] [place] [address] 07/02/2025 2:35 PM EDT Office Visit [facility] [address] [place] [address] Cheri Rojas, LANDSCAPE DESIGNER-BODY TEAM MEMBER [address] [place] [address] documented as of this encounter Goals Goal [...] documented as of this encounter Care Teams Packing Tractor Machine Operator Relationship Specialty Start Date End Date Ricci Julian MD [address] [place] [address] PCP - [employer] 03/07/17 Ricci Julian MD [address] [facility] 110 [place] [address] PCP - General Internal Medicine 08/30/22 Florida Vallejo NP [address] [facility] 110 [place] [address] Nurse Practitioner Neurology 06/28/24 documented as of this encounter
--- OUTSIDE RECORDS SUMMARY | 2024-09-19 09:51 | XMS_ITS | Encounter Summary ---
Author Organization [facility] Address [address] [place] [address] Care Team Providers Care Business Advisor Name Role Phone Ricci Julian MD Unavailable [phone] Ricci Julian MD Primary Care Provider Florida Vallejo NP Unavailable Unavailable Encounter Details Date Type Department Care Team (Late st Contact Info) Description 02/23/2023 Clinisync Result Encounter [facility] External Department Unsolicited [...] week 10/18/2022 How often do you attend amish or uatsdin serv ices? Never 10/18/2022 Do you belong to any clubs o r organizations such as amish groups, unions, fraternal or athletic groups, or [...] Recorded Patient Health Questionnaire-2 Score 0 10/25/2022 [facility] of Occupat ional Health - Occupational [...] place to sleep or slept in a care home (including now)? No 10/18/2022 Comments Unknown Sex [...] Visit [facility] [address] [facility] 130 [place] [address] Megan Pretty MD [address] [facility] [address] [place] [address] 10/15/2024 10:00 AM EDT Social Work [facility] [address] [place] [address] Kerry Bradshaw S, WORKERS COMPENSATION CLAIMS ADJUSTER-S [address] [place] [address] 12/03/2024 9:15 AM EDT Office Visit [facility] [address] [facility] [address] [place] [address] Ricci Julian MD [address] [facility] 110 [place] [address] 01/01/2025 2:40 PM EDT Office Visit [facility] [address] [place] [address] Cheri Rojas, EMERGENCY DEPARTMENT AIDE-TRANSPLANT NURSE [address] [place] [address] 07/02/2025 2:35 PM EDT Office Visit [facility] [address] [place] [address] Cheri Rojas, EMERGENCY DEPARTMENT AIDE-TRANSPLANT NURSE [address] [place] [address] documented as of this encounter Procedures Procedure Name Priority Date/Time Associated Diagnosis Comments US THYROID 02/23/2023 9:37 AM EST documented in this encounter Results * US thyroid (02/23/2023 9:37 AM EST) Anatomical Region Laterality Modality Head, Neck Ultrasound 02/23/2023 9:37 AM EST Narrative 02/23/2023 9:40 [place] [address] Ultrasound Report Signed Patient: YANIRA BUNN MR#: [id number] : 1950 Acct:[id number] Age/Sex: 73 / F ADM Date: 02/23/23 Loc: US Attending Dr: Megan Pretty M.D. Ordering Physician: Megan Pretty M.D. Date of Service: 02/23/23 Procedure(s): US thyroid Accession Number(s): [id number] cc: RICCI JULIAN ; Megan Pretty M.D. The [address] [id number] Patient Name: YANIRA BUNN MRN: [id number] date: 1950 Sex: F Assigned Patient Location: US Current Patient Location: US Accession/Order Number: [id number] Exam Date: 02/23/2023 08:51 Report Date: 02/23/2023 09:37 At the request of: MEGAN PRETTY Procedure: US thyroid EXAM: US thyroid HISTORY: papillary microcarcinoma of thyroid C73 COMPARISON: March and August 2022 thyroid and neck ultrasound TECHNIQUE: Transverse and longitudinal images of the neck FINDINGS: Previous thyroidectomy. 11 x 4 x 8 mm lobulated hypoechoic tissue in the right thyroid bed 15 x 7 x 14 mm lobulated hypoechoic tissue in the left thyroid bed This likely reflects residual thyroid tissue. Adjacent benign-appearing lymph nodes measuring approximately 10 x 5 and 15 x 6 mm. These have reniform shape and central fatty stewart US/US thyroid IMPRESSION: Stable sonographic appearance post thyroidectomy from March 2022 Probable residual tissue in the thyroid fossa. Adjacent benign-appearing lymph nodes Electronically authenticated by: ISSA VELAZQUEZ Date: 02/23/2023 09:37 Dictated By: Issa Velazquez M.D. Signed By: 02/23/23939 DD/ 6 TD/TT: Department Specialist: Procedure Note Radiology, Radiologist, MD - 05/11/2023 [place] [address] Ultrasound Report Signed Patient: YANIRA BUNN EMR#: [id number] : 1950cct:[id number] Age/Sex: 73 / FADM Date: 02/23/23 Loc: US Attending Dr: Megan Pretty M.D. Ordering Physician: Megan Pretty M.D. Date of Service: 02/23/23 Procedure(s): US thyroid Accession Number(s): [id number] cc: RICCI JULIAN ; Megan Pretty M.D. The [address] [id number] Patient Name: YANIRA BUNN MRN: [id number] date: 1950 Sex: F Assigned Patient Location: US Current Patient Location: US Accession/Order Number: [id number] Exam Date: 02/23/2023 08:51 Report Date: 02/23/2023 09:37 At the request of: MEGAN PRETTY Procedure: US thyroid EXAM: US thyroid HISTORY: papillary microcarcinoma of thyroid C73 COMPARISON: March and August 2022 thyroid and neck ultrasound TECHNIQUE: Transverse and longitudinal images of the neck FINDINGS: Previous thyroidectomy. 11 x 4 x 8 mm lobulated hypoechoic tissue in the right thyroid bed 15 x 7 x 14 mm lobulated hypoechoic tissue in the left thyroid bed This likely reflects residual thyroid tissue. Adjacent benign-appearing lymph nodes measuring approximately 10 x 5 and15 x 6 mm. These have reniform shape and central fatty stewart US/US thyroid IMPRESSION: Stable sonographic appearance post thyroidectomy from March 2022 Probable residual tissue in the thyroid fossa. Adjacent benign-appearinglymph nodes Electronically authenticated by: ISSA VELAZQUEZ Date: 02/23/2023 09:37 Dictated By: Issa Velazquez M.D. Signed By:02/23/23939 DD/ 6 TD/TT: Department Specialist: us Generic External Data Provider IMG US PROCEDURES Final Result documented in this encounter Visit Diagnoses Not on filedocumented in this encounter Additional Health Concerns Assessment Noted Time PHQ-9 Depression Total Score: 0 10/26/19 8:00 AM EDT documented as of this encounter Care Teams Business Advisor Relationship Specialty Start Date End Date Ricci Julian MD [address] [facility] 110 [place] [address] PCP - [employer] 03/07/17 Ricci Julian MD [address] [place] [address] PCP - General Internal Medicine 08/30/22 Florida Vallejo NP [address] [facility] [address] [place] [address] Nurse Practitioner Neurology 06/28/24 documented as of this encounter
--- OUTSIDE RECORDS SUMMARY | 2024-09-19 09:51 | XMS_ITS | Encounter Summary ---
Author Organization [facility] Address [address] [place] [address] Care Team Providers Care Range Mechanic Name Role Phone Ricci Julian MD Unavailable [phone] Ricci Julian MD Primary Care Provider [phone] Florida Vallejo NP Unavailable Unavailable Encounter Details Date Type Department Care Team ([facility] Contact Info) Description 09/03/2024 Abstract [facility] [address] [facility] 110 [place] [address] Ricci Julian MD 112 [facility] [address] [place], [place] [address] Social History Tobacco Use Types Packs/Day Years [...] often do you attend chur ch or orthodox services? Patient declined 10/28/2023 Do you belong to any clubs o r organizations such as mandaeism groups, unions, [employer] or athletic groups, or school groups? Patient [...] Recorded Patient Health Questionnaire-2 Score 2 08/23/2024 [facility] of Occupat ional Health [...] a care home (including now)? No 10/18/2022 Housing Stability Vital Sign Answer Aris e Recorded In the last 12 months, was t here a time when you were not able to pay the mortgage or rent on time? No 10/28/2023 Number of Times Moved in the Last Year Not on fi le 10/28/2023 At any time in the past 12 m [facility], were you homeless or living in a care home (including now)? No 10/28/2023 Comments Unknown Sex [...] EDT Office Visit [facility] [address] [facility] 130 [place] [address] Megan Pretty MD 112 [facility] 130 [place] [address] 10/15/2024 10:00 AM EDT Social Work [facility] [address] [place] [facility] [address] Kerry Bradshaw LISW-S [address] [facility] [place] [address] 12/03/2024 9:15 AM EDT Office Visit [facility] [address] [place] [address] Ricci Julian MD [address] [place] [address] 01/01/2025 2:40 PM EDT Office Visit [facility] [address] [place] [address] Cheri Rojas, CREDIT PORTFOLIO ADVISOR-TRANSPORT RN [address] [place] [address] 07/02/2025 2:35 PM EDT Office Visit [facility] [address] [place] [address] Cheri Rojas, CREDIT PORTFOLIO ADVISOR-TRANSPORT RN [address] [place] [address] documented as of this encounter Goals Goal [...] documented as of this encounter Care Teams Range Mechanic Relationship Specialty Start Date End Date Ricci Julian MD [address] [place] [address] PCP - [employer] 03/07/17 Ricci Julian MD [address] [facility] [address] [place] [address] PCP - General Internal Medicine 08/30/22 Florida Vallejo NP [address] [facility] [address] [place] [address] Nurse Practitioner Neurology 06/28/24 documented as of this encounter
--- OUTSIDE RECORDS SUMMARY | 2024-09-19 09:51 | XMS_ITS | Encounter Summary ---
Author Organization [facility] Address [address] [place] [address] Care Team Providers Care Woods Rider Name Role Phone Ricic Julian MD Unavailable Ricci Julian MD Primary Care Provider [phone] Florida Vallejo NP Unavailable Unavailable Encounter Details Date Type Department Care Team (Late st Contact Info) Description 05/23/2023 Orders Only [facility] 112 [facility] [address] [place] [address] Jessi Becerra 112 [facility] [address] [place], [place] [id number] Papillary microcarcinoma of thyroid (HCC); Papillary thyroid carcinoma (HCC) Social History Tobacco Use Types Packs/Day [...] week 10/18/2022 How often do you attend tenriism or rastafarian serv ices? Never 10/18/2022 Do you belong to any clubs o r organizations such as tenriism groups, unions, fraternal or athletic groups, or [...] Recorded Patient Health Questionnaire-2 Score 0 10/25/2022 [facility] of Occupat ional Health - [...] Visit [facility] [address] [facility] [address] [place] [address] Megan Pretty MD [address] [facility] 130 [place] [address] 10/15/2024 10:00 AM EDT Social Work [facility] [address] [place] [address] Kerry Bradshaw, ADJUNCT TEACHER-S [address] [place] [address] 12/03/2024 9:15 AM EDT Office Visit [facility] [address] [facility] [address] [place] [address] Ricci Julian MD [address] [place] [address] 01/01/2025 2:40 PM EDT Office Visit [facility] [address] [place] [address] Cheri Rojas, ENGINEER ASSISTANT-COUNSELING SERVICES MANAGER [address] [place] [address] 07/02/2025 2:35 PM EDT Office Visit [facility] [address] [place] [address] Cheri Rojas, ENGINEER ASSISTANT-COUNSELING SERVICES MANAGER [address] [place] [address] documented as of this encounter Visit Diagnoses Diagnosis Papillary microcarcinoma of thyroid (HCC) Papillary thyroid carcinoma (HCC) documented in this encounter Additional Health Concerns Assessment Noted Time PHQ-9 Depression Total Score: 0 10/26/19 23 8:00 AM EDT documented as of this encounter Care Teams Woods Rider Relationship Specialty Start Date End Date Ricci Julian MD [address] [facility] 110 [place] [address] PCP - [employer] 03/07/17 Ricci Julian MD [address] [facility] 110 [place] [address] PCP - General Internal Medicine 08/30/22 Florida Vallejo NP [address] [place] [address] Nurse Practitioner Neurology 06/28/24 documented as of this encounter
--- OUTSIDE RECORDS SUMMARY | 2024-09-19 09:51 | XMS_ITS | Encounter Summary ---
Author Organization [facility] Address [address] [place] [address] Care Team Providers Care Event Security Officer Name Role Phone Ricci Julian MD Unavailable [phone] Ricci Julian MD Primary Care Provider [phone] [place] Vallejo NP Unavailable Unavailable Encounter Details Date Type Department Care Team (Late st Contact Info) Description 02/23/2023 Clinisync Result Encounter [facility] Unsolicited Megan Pretty MD [address] [address] Social History Tobacco Use Types Packs/Day Years [...] week 10/18/2022 How often do you attend hinduism or scientologist serv ices? Never 10/18/2022 Do you belong to any clubs o r organizations such as hinduism groups, unions, fraternal or athletic groups, or [...] Recorded Patient Health Questionnaire-2 Score 0 10/25/2022 [facility] [...] place to sleep or slept in a detention (including now)? No 10/18/2022 Comments Unknown Sex [...] Visit [facility] [address] [facility] [address] [place] [phone] Megan Pretty MD [address] [facility] [place] [address] [place] [address] 10/15/2024 10:00 AM EDT Social Work [facility] [address] [place] [address] Kerry Bradshaw, CULINARY ASSISTANT-S [address] [place] [address] 12/03/2024 9:15 AM EDT Office Visit [facility] [address] [facility] [address] [place] [address] Ricci Julian MD [address] [facility] [place] [address] [place] [address] 01/01/2025 2:40 PM EDT Office Visit [facility] [address] [place] [phone] Cheri Rojas, GAS UTILITY WORKER-ASSET ACCOUNTANT [address] [place] [address] 07/02/2025 2:35 PM EDT Office Visit [facility] [address] [place] [address] Cheri Rojas, GAS UTILITY WORKER-ASSET ACCOUNTANT [address] [place] [address] documented as of this encounter Procedures Procedure Name Priority Date/Time Associated Diagnosis Comments US THYROID 02/23/2023 9:37 AM EST documented in this encounter Results * US thyroid (02/23/2023 9:37 AM EST) Anatomical Region Laterality Modality Head, Neck Ultrasound 02/23/2023 9:37 AM EST Narrative 02/23/2023 9:40 AM EST [address] [address] Ultrasound Report Signed Patient: YANIRA BUNN MR#: [id number] : 1950 Acct:[id number] Age/Sex: 73 / F ADM Date: 02/23/23 Loc: US Attending Dr: Megan Pretty M.D. Ordering Physician: Megan Pretty M.D. Date of Service: 02/23/23 Procedure(s): US thyroid Accession Number(s): [id number] cc: RICCI JULIAN ; Megan Pretty M.D. The [address] [address] Patient Name: YANIRA BUNN MRN: [id number] date: 1950 Sex: F Assigned Patient Location: US Current Patient Location: US Accession/Order Number: [id number] Exam Date: 02/23/2023 08:51 Report Date: 02/23/2023 [...] M.D. Signed By: 02/23/23939 DD/ 6 TD/TT: Supervisor Dehydrogenation: Procedure Note Radiology, Radiologist, MD - 02/23/2023 [place] [address] Ultrasound Report Signed Patient: YANIRA BUNN EMR#: [id number] : 1950cct:[id number] Age/Sex: 73 / FADM Date: 02/23/23 Loc: US Attending Dr: Megan Pretty M.D. Ordering Physician: Megan Pretty M.D. Date of Service: 02/23/23 Procedure(s): US thyroid Accession Number(s): [id number] cc: RICCI JULIAN ; Megan Pretty M.D. The [address] [address] Patient Name: YANIRA BUNN MRN: [facility]:[id number] date: 1950 Sex: F Assigned Patient Location: US Current Patient Location: US Accession/Order Number: [id number] Exam Date: 02/23/2023 08:51 Report Date: 02/23/2023 [...] 09:37 Dictated By: Issa Velazquez M.D. Signed By:02/23/2340 DD/ 6 TD/TT: Supervisor Dehydrogenation: us Megan Pretty MD IMG US PROCEDURES Final Resul t documented in this encounter Visit Diagnoses Not on filedocumented in this encounter Additional Health Concerns Assessment Noted Time PHQ-9 Depression Total Score: 0 10/26/19 23 8:00 AM EDT documented as of this encounter Care Teams Event Security Officer Relationship Specialty Start Date End Date Ricci Julian MD [address] [facility] [place] [address] [place] [address] PCP - [employer] 03/07/17 Ricci Julian MD [address] [facility] [place] [address] [place] [address] PCP - General Internal Medicine 08/30/22 Florida Vallejo NP [address] [facility] [place] [address] [place] [address] Nurse Practitioner Neurology 06/28/24 documented as of this encounter
== END 2024-09-19 09:49 | disposition home or self-care (01) ==
LOC: US 09:48
PROVIDERS: Visit Provider Otolaryngology
DX: C73 Malignant neoplasm of thyroid gland (principal); E04.1 Nontoxic single thyroid nodule
CPT/HCPCS: 76536